=== PATIENT | male | born 1975 | race Caucasian/White ===

== ENCOUNTER 2021-06-02 21:45 | Emergency (ER) | payer MEDICAID, SELFPAY ==
--- NOTE | ~2021-06-02 | XR_ITS ---
EXAMINATION: XR chest 2V DATE: 06/02/2021 22:33 INDICATION: Cough and worsening shortness of breath TECHNIQUE: frontal and lateral views of the chest were obtained. COMPARISON: Chest radiograph dated 10/07/2017 FINDINGS: The lungs remain clear with no focal airspace opacities, pulmonary edema, pleural effusion or pneumot horax. The cardiomediastinal silhouette is normal. Moderate thoracic spondylosis with bridging osteop hytes at several levels in the lower thoracic spine consistent with diffuse idiopathic skeletal hyper ostosis (DISH). IMPRESSION: 1. No acute cardiopulmonary disease. Reviewed, dictated and finalized at location A.
[2021-06-02 21:45] VITALS: BP 154/97; PULSE 85; RESP 25; TEMP 36.6; O2SAT 96
--- NOTE | 2021-06-02 21:56 | ECG_ITS ---
Measurements Intervals [place] Rate: 82 P: 20 MD: 143 QRS: 33 QRSD: 105 T: 55 QT: 382 QTc: 448 Interpretive Statements SINUS RHYTHM MINIMAL Q WAVES- INFERIOR LEADS BORDERLINE ECG Electronically Signed On 06-03-2021 7:15:02 CDT by Cornelius Casas D.O.
[2021-06-02 22:13] LABS: Basophils Absolute Auto 0.07 K/mm3 (0.00-0.10); Basophils Percent Auto 0.7 % (0.0-1.0); Eosinophils Absolute Auto 0.42 K/mm3 (0.02-0.50); Eosinophils Percent Auto 4.1 % (1.0-6.0); Hematocrit 35.3 % (40.0-54.0); Hemoglobin 12.5 g/dL (14.0-18.0); Immature Granulocyte Absolute 0.07 K/mm3 (0.00-0.00); Immature Granulocyte Percent A 0.7 % (0.0-0.0); Lymphocytes Absolute Auto 2.31 K/mm3 (1.10-4.50); Lymphocytes Percent Auto 22.3 % (18.0-42.0); Mean Corpuscular HGB Conc 35.4 g/dL (32.0-36.0); Mean Corpuscular Hemoglobin 30.8 pg (27.0-31.0); Mean Corpuscular Volume 86.9 fL (78.0-102.0); Mean Platelet Volume 10.4 fl (8.7-11.0); Monocytes Percent Auto 8.7 % (2.0-11.0); Neutrophils Absolute Auto 6.6 K/mm3 (1.7-7.2); Neutrophils Percent Auto 63.5 % (50.0-70.0); Platelet Count Result 178 K/mm3 (150-420); Red Blood Count 4.06 M/mm3 (4.70-6.10); Red Cell Distribution Width 12.5 % (11.6-14.4); White Blood Count 10.3 K/mm3 (4.8-10.8)
--- NOTE | 2021-06-02 22:36 | PC.NURSE ---
reviewed papers from [facility]---patient did not keep appts set up & is almost out of prescriptions.
[2021-06-02 22:37] LABS: Alanine Aminotransferase 25 U/L (16-63); Albumin Level 2.9 g/dL (3.4-5.0); Alkaline Phosphatase 75 U/L (46-116); Anion Gap 11 mmol/L (8-16); Aspartate Amino Transferase 24 U/L (15-37); Bilirubin,Total 0.3 mg/dL (0.00-1.00); Blood Urea Nitrogen 8 mg/dL (7-18); Calcium 8.7 mg/dL (8.5-10.1); Carbon Dioxide 26 mmol/L (21-32); Chloride 104 mmol/L (98-108); Estimated CRCL calculation 156 ml/min; Estimated Glomerular Filt Rate > 60; Glucose 205 mg/dL (70-99); NT Pro B Type Natriuretic Pept 1502 pg/mL (0-125); Osmolality Calculated 296 mOsm/kg (285-295); Potassium 3.6 mmol/L (3.5-5.1); Sodium 141 mmol/L (136-145); Total Protein 6.6 g/dL (6.4-8.2); Troponin I 6.8 ng/L (0.00-60.4)
[2021-06-02 22:38] VITALS: BP 140/88; PULSE 85; RESP 21; O2SAT 97
--- NOTE | 2021-06-02 22:53 | ED.GENADULT ---
HPI - General Adult General Chief complaint: Upper Respiratory Infection Stated complaint: chest pain, trouble breathing Time Seen by Provider: 06/02/21 21:50 Source: patient Mode of arrival: ambulatory Limitations: no limitations History of Present Illness HPI narrative: Patient comes in with mild complaints of shortness of breath which has been ongoing and very mild, since his discharge from the hospital with histoplasmosis and CHF. No symptoms are new. He has had these symptoms for the past month he says. Medications taken at home have helped him feel better. He is worried he will run out of his medications. He is requesting refills, and states he comes in for that. He has denied chest pain fever, chills, and other symptoms. He was instructed to follow up, but has not followed up. He is requesting refills on his medications he had from [facility] including his Coreg, Lasix and other drugs. Onset (ago): day(s) Location: neck Radiation: non-radiation Severity: moderate Relieving factors: none Exacerbating factors: none Associated symptoms: denies other symptoms Related Data Home Medications Medication Instructions Recorded Confirmed aspirin [Adult Aspirin] 81 mg PO DAILY 06/02/21 06/02/21 carvedilol 12.5 mg PO BID 06/02/21 06/02/21 furosemide 40 mg PO DAILY 06/02/21 06/02/21 insulin glargine [Lantus Solostar 15 unit SUBCUT HS 06/02/21 06/02/21 U-100 Insulin] metformin 500 mg PO BID 06/02/21 06/02/21 sacubitril-valsartan 1 tablet PO BID 06/02/21 06/02/21 spironolactone 12.5 mg PO DAILY 06/02/21 06/02/21 Allergies Allergy/AdvReac Type Severity Reaction Status Date / Time amlodipine Allergy Unknown Verified 06/02/21 22:04 tramadol Allergy Unknown Verified 06/02/21 22:04 Review of Systems Constitutional: Constitutional: Reports no additional constitutional complaints Eyes: Eyes: Reports no additional eye complaints ENT: Reports system reviewed and no additional complaints, except as documented Cardiovascular: Cardiovascular: Reports no additional cardiovascular complaints Respiratory: Respiratory: Reports no additional respiratory complaints Gastrointestinal: Gastrointestinal: Reports no additional gastrointestinal complaints Genitourinary: Genitourinary: Reports no additional male genitourinary complaints Musculoskeletal: Musculoskeletal: Reports no additional musculoskeletal complaints Integumentary/Breasts: Skin/Breast: Reports system reviewed and no additional complaints, except as docu Neurologic: Reports system reviewed and no additional complaints, except as documented Psychiatric: Psychiatric: Reports no additional psychiatric complaints Endocrine: Endocrine: Reports no additional endocrine complaints Hematologic/Lymphatic: Hematologic/Lymphatic: Reports no additional hematologic/lymphatic complaints Allergic/Immunologic: Allergic/Immunologic: Reports no additional allergic/immunologic complaints [facility] Past Medical History Medical History (Updated 06/03/21 @ 00:43 by Steve Monroe MD) Congestive heart failure Diabetes mellitus Histoplasma capsulatum infection Surgical History Surgical History (Updated 06/03/21 @ 00:44 by Steve Monroe MD) H/O hernia repair Family History Family History (Updated 06/03/21 @ 00:44 by Steve Monroe MD) Father Heart disease Mother Diabetes mellitus Social History Social History (Updated 06/03/21 @ 00:46 by Steve Monroe MD) Smoking packs per day: 0.5 Smoking cigarettes per day: 10.0 Smoking status: Current every day smoker Tobacco type: cigarettes Alcohol intake: current Alcohol use details: alcohol use some days each week Substance use: never Gender identity (if verbalized by the patient): Male Sexual Orientation (if Verbalized by the Patient): Straight or Heterosexual Exam Const: General: no acute distress and alert Orientation/consciousness: patient oriented x3 HENMT: Head: normal to inspection E
[2021-06-02 23:14] VITALS: BP 138/89; PULSE 84; RESP 20; TEMP 37.1; O2SAT 96
== END 2021-06-02 23:15 | disposition home or self-care (01) ==
PROVIDERS: Emergency Provider Emergency Medicine
DX: I50.9 Heart failure, unspecified (principal); Z91.19 Patient's noncompliance with other medical treatment and regimen
CPT/HCPCS: 36415; 71046; 80053; 83880; 84484; 85025; 93005; 99283; 99284

== ENCOUNTER 2021-06-07 09:10 | Outpatient (CLI) | payer MEDICAID, SELFPAY ==
[2021-06-07 09:42] LABS: Hemoglobin A1C 9.5 % (<5.7)
[2021-06-07 10:41] LABS: Cholesterol 170 mg/dL (0-200); HDL Direct 34 mg/dL (40-60); LDL Cholesterol Calculated 85 mg/dL (<130); Triglycerides 253 mg/dL (0-150)
[2021-06-07 10:43] LABS: Thyroid Stimulating Hormone Reflex 1.15 u/IU/mL (0.36-3.74)
== END 2021-06-07 09:11 | disposition home or self-care (01) ==
LOC: CHSLAB 09:12
PROVIDERS: PCP Family Medicine; Visit Provider Family Medicine
DX: E11.9 Type 2 diabetes mellitus without complications (principal)
CPT/HCPCS: 36415; 80061; 83036; 84443

== ENCOUNTER 2022-07-06 23:09 | Inpatient (IN) | payer OTHER, SELFPAY ==
--- NOTE | ~2022-07-06 | CT_ITS ---
EXAMINATION: CT foot RT w con DATE: 07/07/2022 00:51 INDICATION: Diabetic right foot ulcer between the first and second metatarsals. TECHNIQUE: Computed tomography (CT) of the right foot and ankle was performed without intravenous con trast. Automated exposure control and iterative reconstruction technique were employed. The dose-roxy th product was 482.53 mGy-cm. COMPARISON: Right ankle and foot radiographs 03/19/2015 FINDINGS: Motion artifact is noted. The phalanges are excluded. Bone alignment is normal. No fracture . There is mild polyarticular osteoarthritis of the midfoot. There is mild ankle joint osteoarthritis . There are enthesophytes at the posterior and plantar aspects of calcaneal tuberosity. There is subc utaneous edema in the lower leg and foot. IMPRESSION: 1. No evidence of osteomyelitis. 2. Mild polyarticular osteoarthritis. Reviewed, dictated and finalized at location A.
--- NOTE | ~2022-07-06 | US_ITS ---
EXAMINATION: US arterial ankle brachial ind DATE: 07/09/2022 14:24 INDICATION: Diabetic foot ulcer. TECHNIQUE: Segmental pressures and plethysmographic and Doppler waveforms of the brachial and lower e xtremity arteries were obtained. COMPARISON: None. FINDINGS: Right and left brachial artery pressures of 149 mm Hg and 133 mm Hg, respectively, are concordant (no rmal difference <= 30 mmHg). Toe pressures were unable to be obtained due to wounds and bandaging. The right ankle-brachial index (ZOIE) is 1.13 (normal >= 0.9-1.0). Arterial Doppler waveforms are trip hasic with brisk systolic upstrokes throughout the arteries of the right lower limb. The left ZOIE is 1.17. Arterial Doppler waveforms are triphasic with brisk systolic upstrokes througho ut the arteries of the left lower limb. IMPRESSION: 1. No significant arterial occlusive disease to either lower limb with normal bilateral ABIs. Reviewed, dictated and finalized at location A. IMPRESSION: 1. No significant arterial occlusive disease to either lower limb with normal b ilateral ABIs.
--- NOTE | ~2022-07-06 | XR_ITS ---
EXAMINATION: XR chest 1V portable DATE: 07/07/2022 00:06 INDICATION: Chest pain. TECHNIQUE: A single frontal view of the chest was obtained on 2 radiographs. COMPARISON: Chest 2 views 06/02/2021 FINDINGS: There is no pneumonia, pleural effusion, or pneumothorax. The heart size is normal. IMPRESSION: 1. No acute cardiopulmonary disease. Reviewed, dictated and finalized at location A.
--- NOTE | 2022-07-06 23:18 | ED.SKABFB ---
HPI - Skin/Abscess/Foreign Bdy General Chief complaint: Extremity Injury, Lower Stated complaint: Foot Wound Time Seen by Provider: 07/06/22 23:12 Source: patient Mode of arrival: ambulatory Limitations: no limitations History of Present Illness HPI narrative: 47-year-old male, smoker with a history of hypertension, diabetes mellitus, Histoplasma, nonischemic cardiomyopathy with systolic and diastolic CHF with respiratory failure in April of 2021, obesity with BEATRIZ presents to the ER with -- right leg and right foot swelling and pain for the past 2 days -- the mother of the patient lanced the swelling between his 1st and 2nd metatarsal and poured peroxide. -- Questionable fever with chills MD complaint: abscess/boil ( on his right foot between the 1st and the 2nd metatarsals) Onset (ago): day(s) Tetanus up to date: yes Location: RLE Severity: moderate Quality: aching Pain Consistency: constant Relieving factors: none Exacerbating factors: none Associated symptoms: fever and chills Treatments prior to arrival: attempted to drain pus at home Related Data Home Medications Medication Instructions Recorded Confirmed aspirin 81 mg tablet 81 mg PO DAILY 06/02/21 07/07/22 insulin glargine 100 unit/mL (3 20 unit subcut DAILY 06/02/21 07/07/22 mL) subcutaneous pen (Lantus Solostar U-100 Insulin) metformin 500 mg tablet 1,000 mg PO BID 06/02/21 07/07/22 omeprazole 20 mg capsule,delayed 20 mg PO BID 06/07/21 07/07/22 release rosuvastatin 20 mg tablet (Crestor) 20 mg PO DAILY 07/07/22 07/07/22 Allergies Allergy/AdvReac Type Severity Reaction Status Date / Time amlodipine Allergy Unknown Verified 07/06/22 23:21 tramadol Allergy Unknown Verified 07/06/22 23:21 Review of Systems Review of Systems: All systems reviewed & are unremarkable except as noted in HPI and below Constitutional: Constitutional: Reports as per HPI and Reports no additional constitutional complaints Eyes: Eyes: Reports as per HPI and Reports no additional eye complaints ENT: Reports system reviewed and no additional complaints, except as documented and Reports as per HPI Cardiovascular: Cardiovascular: Reports as per HPI and Reports no additional cardiovascular complaints Respiratory: Respiratory: Reports as per HPI and Reports no additional respiratory complaints Gastrointestinal: Gastrointestinal: Reports as per HPI and Reports no additional gastrointestinal complaints Genitourinary: Genitourinary: Reports no additional male genitourinary complaints and Reports as per HPI Musculoskeletal: Musculoskeletal: Reports no additional musculoskeletal complaints and Reports as per HPI Integumentary/Breasts: Skin/Breast: Reports system reviewed and no additional complaints, except as docu Comments: right foot swelling with open central part Neurologic: Reports system reviewed and no additional complaints, except as documented and Reports as per HPI Psychiatric: Psychiatric: Reports no additional psychiatric complaints and Reports as per HPI Endocrine: Endocrine: Reports no additional endocrine complaints and Reports as per HPI Hematologic/Lymphatic: Hematologic/Lymphatic: Reports no additional hematologic/lymphatic complaints and Reports as per HPI Allergic/Immunologic: Allergic/Immunologic: Reports no additional allergic/immunologic complaints and Reports as per HPI PMF Past Medical History Medical History Congestive heart failure Diabetes mellitus Histoplasma capsulatum infection Hypertension Nicotine addiction Obesity, Class III, BMI 40-49.9 (morbid obesity) Surgical History Surgical History H/O hernia repair Family History Family History Father Heart disease Mother Diabetes mellitus Social History Social History (Reviewed 07/06/22 @ 23:39 by Abad Loomis
--- NOTE | 2022-07-06 23:26 | ECG_ITS ---
Measurements Intervals [place] Rate: 111 P: 35 AK: 145 QRS: 55 QRSD: 107 T: 48 QT: 350 QTc: 477 Interpretive Statements SINUS TACHYCARDIA ABNORMAL RHYTHM ECG COMPARED TO ECG 06/02/2021 22:01:03 SINUS TACHYCARDIA NOW PRESENT Electronically Signed On 07-07-2022 13:44:28 CDT by Claudia Christian M.D.
[2022-07-06 23:55] VITALS: BP 140/87; PULSE 117; RESP 20; TEMP 36.5; O2SAT 97
[2022-07-06 23:58] LABS: Basophils Absolute Auto 0.09 K/mm3 (0.00-0.10); Basophils Percent Auto 0.9 % (0.0-1.0); Eosinophils Absolute Auto 0.58 K/mm3 (0.02-0.50); Eosinophils Percent Auto 5.7 % (1.0-6.0); Hemoglobin 12.7 g/dL (14.0-18.0); Immature Granulocyte Absolute 0.07 K/mm3 (0.00-0.00); Immature Granulocyte Percent A 0.7 % (0.0-0.0); Lymphocytes Absolute Auto 2.91 K/mm3 (1.10-4.50); Lymphocytes Percent Auto 28.7 % (18.0-42.0); Mean Corpuscular HGB Conc 34.3 g/dL (32.0-36.0); Mean Corpuscular Hemoglobin 31.2 pg (27.0-31.0); Mean Corpuscular Volume 90.9 fL (78.0-102.0); Mean Platelet Volume 9.4 fl (8.7-11.0); Monocytes Absolute Auto 0.96 K/mm3 (0.10-0.90); Monocytes Percent Auto 9.5 % (2.0-11.0); Neutrophils Absolute Auto 5.5 K/mm3 (1.7-7.2); Neutrophils Percent Auto 54.5 % (50.0-70.0); Platelet Count Result 229 K/mm3 (150-420); Red Blood Count 4.07 M/mm3 (4.70-6.10); Red Cell Distribution Width 13.1 % (11.6-14.4); White Blood Count 10.1 K/mm3 (4.8-10.8)
[2022-07-07] VITALS (16 sets, daily range): BP systolic 123–164; BP diastolic 82–101; PULSE 80–106; RESP 14–22; TEMP 36.2–37.1; O2SAT 96–100; BMI 45.5
[2022-07-07 00:02] LABS: Add Urine Microscopic? YES; Appearance Urine Clear (Clear); Bilirubin Urine Negative (Negative); Blood Urine Negative (Negative); Color Urine Light Yellow (Yellow); Glucose Urine UA 3+ (Negative); Ketones Urine Negative (Negative); Leukocyte Esterase Ur Negative (Negative); Nitrate Urine Negative (Negative); Protein Urine Negative (Negative); Specific Grav Ur <= 1.005 (1.010-1.020); Urobilinogen Urine 0.2 mg/dL (0.2-1.0)
[2022-07-07 00:08] LABS: Bacteria Urine None seen /hpf; RBC Urine 0-2 /hpf (0-2); Squamous Epithelial Cell Urine None seen /hpf (Few); WBC Urine 0-3 /hpf (0-3)
[2022-07-07 00:14] LABS: D Dimer 0.46 mg/L (0.19-0.50); Partial Thromboplastin Time 25.6 SEC (23.90-30.70); Prothrombin Time 10.7 Seconds (9.50-12.10)
[2022-07-07 00:19] LABS: Lactic Acid Reflex 1.7 mmol/L (0.4-2.0)
[2022-07-07 00:26] LABS: Alanine Aminotransferase 23 U/L (16-63); Alkaline Phosphatase 84 U/L (46-116); Anion Gap 10 mmol/L (8-16); Aspartate Amino Transferase 17 U/L (15-37); Bilirubin,Total 0.2 mg/dL (0.00-1.00); Blood Urea Nitrogen 11 mg/dL (7-18); Calcium 8.3 mg/dL (8.5-10.1); Carbon Dioxide 22 mmol/L (21-32); Chloride 99 mmol/L (98-108); Estimated CRCL calculation 126 ml/min; Estimated Glomerular Filt Rate > 60; Lipase 73 U/L (73-393); Magnesium 1.8 mg/dL (1.8-2.4); NT Pro B Type Natriuretic Pept 52 pg/mL (0-125); Osmolality Calculated 290 mOsm/kg (285-295); Potassium 3.6 mmol/L (3.5-5.1); Sodium 131 mmol/L (136-145); Thyroid Stimulating Hormone 1.42 uIU/mL (0.36-3.74); Total Protein 6.6 g/dL (6.4-8.2); Troponin I 6.9 ng/L (0.00-60.4)
[2022-07-07 00:28] LABS: Glucose 445 mg/dL (70-99)
[2022-07-07 00:29] LABS: CRP 2.3 mg/dL (0.0-0.9)
[2022-07-07] MEDS: INSULIN HUMAN REGULAR (*BKC) 100 UNITS/ML 10 UNITS IV PUSH (00:51)
[2022-07-07] MEDS: SULFAMETHOXAZOLE/TRIMETHOPRIM 800/160 MG DS TABLET 1 TAB PO (00:51)
[2022-07-07] MEDS: AMPICILLIN SULB 3 GM/NS 100 ML 3 GM/100 ML VIAL IVPB ×5 (00:51→23:15)
[2022-07-07] MEDS: HYDROcodone/acetaminophen (*CRX) 5-325 MG TABLET 1 TAB PO ×4 (01:04→21:04)
[2022-07-07 01:34] LABS: Glucose Point of Care 298 mg/dl (65-105)
--- NOTE | 2022-07-07 01:39 | PC.NURSE ---
pt to be admitted as an inpatient into room 209
--- NOTE | 2022-07-07 01:53 | PC.NURSE ---
spoke with ZAIN Orantes concerning patient admission. informed ZAIN Orantes that pt's blood glucose with be checked prior to being brought up to room 209 per MD Choi.
[2022-07-07] MEDS: INSULIN HUMAN REGULAR (*BKC) 100 UNITS/ML SUB-Q (02:06)
--- NOTE | 2022-07-07 02:08 | PC.NURSE ---
pt given Regular 5unit subq for POC 203 - see MAR. Updated ZAIN Orantes.
--- NOTE | 2022-07-07 02:15 | ADMGEN ---
This patient, Clovis Steel, was admitted to 2nd Floor Room 209-1. Patient/family oriented to hospital policies and general routines including ID bracelet, bed and alarms, visiting hours, pain management, procedures, bathroom and other care routines, personal items, smoking policy, room service/diet, and visiting hours. Information on how to activate the Rapid Response Team has been discussed. Patient/Family are encouraged to report perceived risks to care and to ask questions if they do not understand what they are told or what they should do.
[2022-07-07 05:31] LABS: Hematocrit 36.6 % (40.0-54.0); Hemoglobin 12.4 g/dL (14.0-18.0); Mean Corpuscular HGB Conc 33.9 g/dL (32.0-36.0); Mean Corpuscular Hemoglobin 30.7 pg (27.0-31.0); Mean Corpuscular Volume 90.6 fL (78.0-102.0); Mean Platelet Volume 8.9 fl (8.7-11.0); Platelet Count Result 210 K/mm3 (150-420); Red Blood Count 4.04 M/mm3 (4.70-6.10); Red Cell Distribution Width 12.7 % (11.6-14.4); White Blood Count 9.1 K/mm3 (4.8-10.8)
[2022-07-07 05:49] LABS: Alanine Aminotransferase 23 U/L (16-63); Albumin Level 2.7 g/dL (3.4-5.0); Alkaline Phosphatase 79 U/L (46-116); Anion Gap 8 mmol/L (8-16); Aspartate Amino Transferase 17 U/L (15-37); Bilirubin,Total 0.2 mg/dL (0.00-1.00); Blood Urea Nitrogen 9 mg/dL (7-18); Carbon Dioxide 24 mmol/L (21-32); Chloride 103 mmol/L (98-108); Estimated CRCL calculation 171 ml/min; Estimated Glomerular Filt Rate > 60; Glucose 214 mg/dL (70-99); Osmolality Calculated 284 mOsm/kg (285-295); Potassium 3.2 mmol/L (3.5-5.1); Sodium 135 mmol/L (136-145); Total Protein 6.2 g/dL (6.4-8.2)
--- NOTE | 2022-07-07 07:06 | PM.IMHP ---
H&P: HPI History of Present Illness Date/Time: 07/07/22 07:06 Chief Complaint: Right lower extremity swelling and redness with foot warm Narrative: This is a 47-year-old male who presented to our emergency department with complaints of right leg and foot swelling and pain that occur a couple of days ago. Patient has a past medical history of congestive heart failure, diabetes, hypertension, and nicotine addiction. Patient notes that he developed a sore on the bottom of his feet a couple of days ago he is unsure of how he developed a sore. He notes that he experienced pain to the right foot in noticed a pustule ball between his great toe and second toe. Patient noted that at that time he asked his mother to cut open the bump. Patient notes that when she lacerated abscess by fluid discharge from the site. Patient notes that at that time he put hydrogen peroxide on the site. Later he started to develop redness and increased pain that started to migrate up his leg. At that time he decided to come to our emergency department. Patient is being admitted for cellulitis and hyperglycemia. Vital signs 129/85, 93, 18, 97.5, 95% on room air, WBCs 10.1, hemoglobin 12.7, hematocrit 37.0, platelets 229, D-dimer 0.46, sodium 131, potassium 3.6, BUN 11, creatinine 1.05, glucose 445, lactic acid 1.7, magnesium 1.8, total bilirubin 0.2, AST 17, ALT 23, troponin 6.9, BUN 52, CRP 2.3, TSH 1.42 UA positive for glucose EKG indicates sinus tach with a heart rate of 111 patient has been admitted for cellulitis and hyperglycemia. Patient is still experiencing pain to the right lower extremity. The patient denies SOB, CP, palpitation, extremity numbness, lightheadedness, dizziness, constipation, diarrhea, chills, or fever. Review of Systems Review of Systems: A 14 organ system Review of Systems was performed and pertinent positives included in the HPI, otherwise remaining ROS is negative. [facility] Past Medical History Medical History Congestive heart failure Diabetes mellitus Histoplasma capsulatum infection Hypertension Nicotine addiction Obesity, Class III, BMI 40-49.9 (morbid obesity) Surgical History Surgical History H/O hernia repair Family History Family History Father Heart disease Mother Diabetes mellitus Social History Social History Smoking packs per day: 0.5 Smoking cigarettes per day: 10.0 Smoking status: Former smoker Alcohol intake: current Drinks per week: 2 Alcohol use details: alcohol use some days each week Substance use: never Gender identity (if verbalized by the patient): Male Sexual Orientation (if Verbalized by the Patient): Straight or Heterosexual Spiritual care concerns: No Meds Home Medications and Allergies Home Medications Medication Instructions Recorded Confirmed Type aspirin 81 mg tablet 81 mg PO DAILY 06/02/21 07/07/22 History furosemide 40 mg tablet (Lasix) 40 mg PO DAILY #30 tabs 06/02/21 07/07/22 Rx insulin glargine 100 unit/mL (3 20 unit subcut DAILY 06/02/21 07/07/22 History mL) subcutaneous pen (Lantus Solostar U-100 Insulin) metformin 500 mg tablet 1,000 mg PO BID 06/02/21 07/07/22 History spironolactone 25 mg tablet 12.5 mg PO DAILY #30 tabs 06/02/21 07/07/22 Rx (Aldactone) omeprazole 20 mg capsule,delayed 20 mg PO BID 06/07/21 07/07/22 History release carvedilol 25 mg tablet See Rx Instructions .Route 10/14/21 07/07/22 Rx .COMPLEX #180 tabs rosuvastatin 20 mg tablet (Crestor) 20 mg PO DAILY 07/07/22 07/07/22 History Allergies Allergy/AdvReac Type Severity Reaction Status Date / Time amlodipine Allergy Unknown Verified 07/06/22 23:21 tramadol Allergy Unknown Verified 07/06/22 23:21 Vital Signs Vital Signs - 24 hr 07/06/22 2
[2022-07-07 07:36] LABS: Glucose Point of Care 201 mg/dl (65-105)
[2022-07-07] MEDS: ASPIRIN 81 MG CHEWABLE TABLET PO (08:01)
[2022-07-07] MEDS: carvediloL 12.5 MG TABLET 25 MG PO ×2 (08:01→21:03)
[2022-07-07] MEDS: ROSUVASTATIN 10 MG TABLET 20 MG PO (08:02)
[2022-07-07] MEDS: PANTOPRAZOLE 40 MG TABLET PO ×2 (08:02→16:42)
[2022-07-07] MEDS: FUROSEMIDE 40 MG TABLET PO (08:02)
[2022-07-07] MEDS: ENOXAPARIN 40 MG/0.4 ML SYRINGE SUB-Q (08:05)
[2022-07-07] MEDS: INSULIN GLARGINE (*BKC) 100 UNITS/ML 20 UNITS SUB-Q (08:07)
[2022-07-07] MEDS: SPIRONOLACTONE 12.5 MG TABLET PO (08:10)
[2022-07-07] MEDS: VANCOMYCIN HCL 2,000 MG in SODIUM CHLORIDE 0.9% IV 500 ML 250 MG IVPB (13:47)
[2022-07-07 16:44] LABS: Glucose Point of Care 203 mg/dl (65-105)
[2022-07-07 16:52] LABS: Glucose Point of Care 225 mg/dl (65-105)
[2022-07-07] MEDS: traZODone HCL 50 MG TABLET PO (21:04)
[2022-07-07 21:08] LABS: Glucose Point of Care 220 mg/dl (65-105)
[2022-07-08] VITALS (9 sets, daily range): BP systolic 132–147; BP diastolic 77–91; PULSE 78–99; RESP 14–18; TEMP 35.9–36.7; O2SAT 98–100
[2022-07-08] MEDS: VANCOMYCIN HCL 2,000 MG in SODIUM CHLORIDE 0.9% IV 500 ML 250 MG IVPB ×3 (01:26→22:05)
[2022-07-08] MEDS: HYDROcodone/acetaminophen (*CRX) 5-325 MG TABLET 1 TAB PO ×5 (01:28→21:24)
[2022-07-08] MEDS: AMPICILLIN SULB 3 GM/NS 100 ML 3 GM/100 ML VIAL IVPB ×3 (05:06→18:04)
[2022-07-08 06:57] LABS: Hematocrit 36.7 % (40.0-54.0); Hemoglobin 12.8 g/dL (14.0-18.0); Mean Corpuscular HGB Conc 34.9 g/dL (32.0-36.0); Mean Corpuscular Hemoglobin 31.5 pg (27.0-31.0); Mean Corpuscular Volume 90.4 fL (78.0-102.0); Mean Platelet Volume 9.2 fl (8.7-11.0); Platelet Count Result 205 K/mm3 (150-420); Red Blood Count 4.06 M/mm3 (4.70-6.10); Red Cell Distribution Width 12.7 % (11.6-14.4); White Blood Count 11.4 K/mm3 (4.8-10.8)
[2022-07-08 07:15] LABS: Alanine Aminotransferase 20 U/L (16-63); Albumin Level 2.5 g/dL (3.4-5.0); Alkaline Phosphatase 76 U/L (46-116); Anion Gap 6 mmol/L (8-16); Aspartate Amino Transferase 13 U/L (15-37); Bilirubin,Total 0.4 mg/dL (0.00-1.00); Blood Urea Nitrogen 9 mg/dL (7-18); Calcium 8.1 mg/dL (8.5-10.1); Carbon Dioxide 25 mmol/L (21-32); Chloride 104 mmol/L (98-108); Estimated CRCL calculation 192 ml/min; Estimated Glomerular Filt Rate > 60; Glucose 195 mg/dL (70-99); Osmolality Calculated 283 mOsm/kg (285-295); Potassium 3.8 mmol/L (3.5-5.1); Sodium 135 mmol/L (136-145)
[2022-07-08 07:37] LABS: Glucose Point of Care 213 mg/dl (65-105)
[2022-07-08] MEDS: ASPIRIN 81 MG CHEWABLE TABLET PO (08:04)
[2022-07-08] MEDS: carvediloL 12.5 MG TABLET 25 MG PO ×2 (08:04→20:53)
[2022-07-08] MEDS: FUROSEMIDE 40 MG TABLET PO (08:05)
[2022-07-08] MEDS: SACCHAROMYCES BOULARDII 250 MG CAPSULE PO ×3 (08:07→16:31)
[2022-07-08] MEDS: ROSUVASTATIN 10 MG TABLET 20 MG PO (08:07)
[2022-07-08] MEDS: PANTOPRAZOLE 40 MG TABLET PO ×2 (08:07→16:31)
[2022-07-08] MEDS: SACUBITRIL/VALSARTAN 49-51 MG TABLET 1 TABLET PO ×2 (08:08→20:53)
[2022-07-08] MEDS: SPIRONOLACTONE 12.5 MG TABLET PO (08:08)
[2022-07-08] MEDS: INSULIN GLARGINE (*BKC) 100 UNITS/ML 20 UNITS SUB-Q (08:17)
--- NOTE | 2022-07-08 08:17 | P.PN_ITS ---
Progress Note: A&P Assessment and Plan (1) Hyperglycemia due to type 2 diabetes mellitus: Code(s): E11.65 - Type 2 diabetes mellitus with hyperglycemia Status: Acute Assessment and Plan: * glucose 445>214 * a1c 05/2022 9.5 * Continue Accu-Cheks with sliding scale hypoglycemic protocol * Continue diabetic diet (2) Congestive heart failure: Code(s): I50.9 - Heart failure, unspecified Status: Acute Assessment and Plan: * compensated * BNP 52 * Continue lasix 40 mg daily * weight daily * CXR no acute findings (3) Cellulitis of foot: Code(s): L03.119 - Cellulitis of unspecified part of limb Status: Acute Assessment and Plan: * continue ampicillin and vanc day 2 * secondary to foot ulcer * wbc , lactic acid within normal limits * crp elevated 2.3 * BC pending * CT of foot no myelitis noted * continue wound care (4) Tobacco abuse: Code(s): Z72.0 - Tobacco use Status: Acute Assessment and Plan: * Order nicotine patch (5) Obesity, Class III, BMI 40-49.9 (morbid obesity): Code(s): E66.01 - Morbid (severe) obesity due to excess calories Status: Acute Assessment and Plan: * Educated on a healthy lifestyle (6) Diabetes mellitus: Code(s): E11.9 - Type 2 diabetes mellitus without complications Status: Acute Assessment and Plan: * glucose 445>214>195 * a1c 05/2022 9.5 * Continue Accu-Cheks with sliding scale hypoglycemic protocol * Continue diabetic diet (7) Hypertension: Code(s): I10 - Essential (primary) hypertension Status: Acute Assessment and Plan: * Stable * Continue carvedilol and spironolactone * Vital signs as ordered * Adjust medication as needed Subjective Date/time seen: 07/08/22 08:17 Interval history: Patient has no complaints at this time he notes that his arm pain is being well controlled. The site of with cellulitis has decreased in edema, edema and warmth. Patient will possibly benefit from 1 more day worth of antibiotic treatment. The patient denies SOB, CP, palpitation, extremity numbness, lightheadedness, dizziness, constipation, diarrhea, chills, or fever. Review of Systems Review of Systems: A 14 organ system Review of Systems was performed and pertinent positives included in the HPI, otherwise remaining ROS is negative. Objective Data Vital Signs Vital Signs: Vital Signs - 24 hr 07/07/22 12:00 07/07/22 12:00 07/07/22 16:00 Temperature 97.6 F Pulse Rate 87 87 83 Respiratory Rate 16 Blood Pressure 133/87 Pulse Oximetry 100 Oxygen Delivery Room Air 07/07/22 16:00 07/07/22 19:30 07/07/22 19:30 Temperature 97.6 F Pulse Rate 83 80 80 Respiratory Rate 14 18 Blood Pressure 133/82 Pulse Oximetry 100 98 Oxygen Delivery Room Air Room Air 07/07/22 19:30 07/07/22 21:03 07/07/22 23:54 Temperature 97.1 F L Pulse Rate 80 86 87 Respiratory Rate 18 Blood Pressure 144/92 H Pulse Oximetry 98 Oxygen Delivery Room Air 07/07/22 23:54 07/08/22 04:00 07/08/22 04:00 Temperature 98.8 F 97.8 F Pulse Rate 87 99 87 Respiratory Rate 18 18 Blood Pressure 143/88 H 132/80 Pulse Oxi
--- NOTE | 2022-07-08 08:17 | WPDPN ---
Progress Note: A&P Assessment and Plan (1) Hyperglycemia due to type 2 diabetes mellitus: Code(s): E11.65 - Type 2 diabetes mellitus with hyperglycemia Status: Acute Assessment and Plan: glucose 445>214 a1c 05/2022 9.5 Continue Accu-Cheks with sliding scale hypoglycemic protocol Continue diabetic diet (2) Congestive heart failure: Code(s): I50.9 - Heart failure, unspecified Status: Acute Assessment and Plan: compensated BNP 52 Continue lasix 40 mg daily weight daily CXR no acute findings (3) Cellulitis of foot: Code(s): L03.119 - Cellulitis of unspecified part of limb Status: Acute Assessment and Plan: continue ampicillin and vanc day 2 secondary to foot ulcer wbc , lactic acid within normal limits crp elevated 2.[address] of foot no myelitis noted continue wound care (4) Tobacco abuse: Code(s): Z72.0 - Tobacco use Status: Acute Assessment and Plan: Order nicotine patch (5) Obesity, Class III, BMI 40-49.9 (morbid obesity): Code(s): E66.01 - Morbid (severe) obesity due to excess calories Status: Acute Assessment and Plan: Educated on a healthy lifestyle (6) Diabetes mellitus: Code(s): E11.9 - Type 2 diabetes mellitus without complications Status: Acute Assessment and Plan: glucose 445>214>195 a1c 05/2022 9.5 Continue Accu-Cheks with sliding scale hypoglycemic protocol Continue diabetic diet (7) Hypertension: Code(s): I10 - Essential (primary) hypertension Status: Acute Assessment and Plan: Stable Continue carvedilol and spironolactone Vital signs as ordered Adjust medication as needed Subjective Date/time seen: 07/08/22 08:17 Interval history: Patient has no complaints at this time he notes that his arm pain is being well controlled. The site of with cellulitis has decreased in edema, edema and warmth. Patient will possibly benefit from 1 more day worth of antibiotic treatment. The patient denies SOB, CP, palpitation, extremity numbness, lightheadedness, dizziness, constipation, diarrhea, chills, or fever. Review of Systems Review of Systems: A 14 organ system Review of Systems was performed and pertinent positives included in the HPI, otherwise remaining ROS is negative. Objective Data Vital Signs Vital Signs: Vital Signs - 24 hr 07/07/22 12:00 07/07/22 12:00 07/07/22 16:00 Temperature 97.6 F Pulse Rate 87 87 83 Respiratory Rate 16 Blood Pressure 133/87 Pulse Oximetry 100 Oxygen Delivery Room Air 07/07/22 16:00 07/07/22 19:30 07/07/22 19:30 Temperature 97.6 F Pulse Rate 83 80 80 Respiratory Rate 14 18 Blood Pressure 133/82 Pulse Oximetry 100 98 Oxygen Delivery Room Air Room Air 07/07/22 19:30 07/07/22 21:03 07/07/22 23:54 Temperature 97.1 F L Pulse Rate 80 86 87 Respiratory Rate 18 Blood Pressure 144/92 H Pulse Oximetry 98 Oxygen Delivery Room Air 07/07/22 23:54 07/08/22 04:00 07/08/22 04:00 Temperature 98.8 F 97.8 F Pulse Rate 87 99 87 Respiratory Rate 18 18 Blood Pressure 143/88 H 132/80 Pulse Oximetry 96 98 Oxygen Delivery Room Air Room Air 07/08/22 08:04 Temperature Pulse Rate 81 Respiratory Rate Blood Pressure Pulse Oximetry Oxygen Delivery Intake/Output Intake/Output: Intake & Output 07/05/22 07/06/22 07/07/22 07/08/22 23:59 23:59 23:59 23:59 Intake Total 3140 2100 Output Total 400 0973 2600 Balance -678 -447 -439 Meds/Results Medications: Active Medications Generic Name Dose Route Start Last Admin Trade Name Freq PRN Reason Stop Dose Admin Acetaminophen 650 mg 07/07/22 01:33 Acetaminophen 325 Mg Tablet PO Q4H PRN Mild Pain (1-3) or Fever Hydrocodone Bitart/Acetaminophen 1 tab 07/07/22 01:33 07/08/22 05:06 Hydrocodone/Acetaminophen (*Crx) 5-325 Mg Tablet PO 1 tab Q4H PRN Administration Mode
[2022-07-08] MEDS: ENOXAPARIN 40 MG/0.4 ML SYRINGE SUB-Q (08:18)
[2022-07-08 11:50] LABS: Glucose Point of Care 210 mg/dl (65-105)
[2022-07-08 13:33] LABS: Vancomycin Trough 6.7 ug/mL (10.0-15.0)
[2022-07-08 16:41] LABS: Glucose Point of Care 238 mg/dl (65-105)
[2022-07-08] MEDS: traZODone HCL 50 MG TABLET PO (20:58)
[2022-07-08 20:59] LABS: Glucose Point of Care 212 mg/dl (65-105)
[2022-07-09] VITALS (8 sets, daily range): BP systolic 143; BP diastolic 94; PULSE 84–102; RESP 16; TEMP 36.4–36.8; O2SAT 100
[2022-07-09] MEDS: AMPICILLIN SULB 3 GM/NS 100 ML 3 GM/100 ML VIAL IVPB ×2 (00:08→05:28)
--- NOTE | 2022-07-09 02:11 | PC.NURSE ---
Patient's telemetry showed frequent PVC's throughout the evening. Patient was sleeping. He began to show periods of rapid heart rate, and when checked on was sleeping on his side. Patient was repositioned, and batteries were changed in the telemetry box. Telemetry was showing more frequent PVC's and periods of nonsustained V-Tach. Patient's telemetry leads were checked; one was off, and the other was not well attached. Once that was changed, patient's telemetry settled down to sinus rhythm within the 90's. He continued to show some PVC's, but the telemetry was more in line with patient's baseline.
[2022-07-09 05:25] LABS: Hematocrit 39.5 % (40.0-54.0); Hemoglobin 13.6 g/dL (14.0-18.0); Mean Corpuscular HGB Conc 34.4 g/dL (32.0-36.0); Mean Corpuscular Hemoglobin 30.8 pg (27.0-31.0); Mean Corpuscular Volume 89.6 fL (78.0-102.0); Mean Platelet Volume 9.2 fl (8.7-11.0); Platelet Count Result 222 K/mm3 (150-420); Red Blood Count 4.41 M/mm3 (4.70-6.10); White Blood Count 7.8 K/mm3 (4.8-10.8)
[2022-07-09] MEDS: HYDROcodone/acetaminophen (*CRX) 5-325 MG TABLET 1 TAB PO ×4 (05:35→21:29)
[2022-07-09 05:42] LABS: Alanine Aminotransferase 20 U/L (16-63); Albumin Level 2.7 g/dL (3.4-5.0); Alkaline Phosphatase 78 U/L (46-116); Anion Gap 6 mmol/L (8-16); Aspartate Amino Transferase 14 U/L (15-37); Bilirubin,Total 0.3 mg/dL (0.00-1.00); Blood Urea Nitrogen 10 mg/dL (7-18); Calcium 8.7 mg/dL (8.5-10.1); Carbon Dioxide 26 mmol/L (21-32); Chloride 104 mmol/L (98-108); Estimated CRCL calculation 201 ml/min; Estimated Glomerular Filt Rate > 60; Glucose 203 mg/dL (70-99); Osmolality Calculated 287 mOsm/kg (285-295); Potassium 3.7 mmol/L (3.5-5.1); Sodium 136 mmol/L (136-145); Total Protein 6.6 g/dL (6.4-8.2)
[2022-07-09] MEDS: VANCOMYCIN HCL 2,000 MG in SODIUM CHLORIDE 0.9% IV 500 ML 250 MG IVPB (06:08)
--- NOTE | 2022-07-09 06:18 | PC.NURSE ---
Jasmin is unable to chart on patient's progress toward goals. Therefore the charge nurse charts the progress with input from Jasmin.
[2022-07-09 07:23] LABS: Glucose Point of Care 197 mg/dl (65-105)
[2022-07-09] MEDS: SPIRONOLACTONE 12.5 MG TABLET PO (08:27)
[2022-07-09] MEDS: ASPIRIN 81 MG CHEWABLE TABLET PO (08:28)
[2022-07-09] MEDS: SACCHAROMYCES BOULARDII 250 MG CAPSULE PO ×3 (08:28→16:55)
[2022-07-09] MEDS: PANTOPRAZOLE 40 MG TABLET PO ×2 (08:28→16:55)
[2022-07-09] MEDS: carvediloL 12.5 MG TABLET 25 MG PO ×2 (08:28→20:15)
[2022-07-09] MEDS: SACUBITRIL/VALSARTAN 49-51 MG TABLET 1 TABLET PO ×2 (08:28→20:17)
[2022-07-09] MEDS: ROSUVASTATIN 10 MG TABLET 20 MG PO (08:29)
[2022-07-09] MEDS: ENOXAPARIN 40 MG/0.4 ML SYRINGE SUB-Q (08:29)
[2022-07-09] MEDS: FUROSEMIDE 40 MG TABLET PO (08:29)
[2022-07-09] MEDS: INSULIN GLARGINE (*BKC) 100 UNITS/ML 20 UNITS SUB-Q (08:32)
[2022-07-09 08:47] LABS: Glucose Point of Care 203 mg/dl (65-105)
[2022-07-09 11:38] LABS: Glucose Point of Care 265 mg/dl (65-105)
--- NOTE | 2022-07-09 12:01 | P.PN_ITS ---
Progress Note: A&P Assessment and Plan (1) Hyperglycemia due to type 2 diabetes mellitus: Code(s): E11.65 - Type 2 diabetes mellitus with hyperglycemia Status: Acute Assessment and Plan: * glucose 445>214 * a1c 05/2022 9.5 * Continue Accu-Cheks with sliding scale hypoglycemic protocol * Continue diabetic diet (2) Congestive heart failure: Code(s): I50.9 - Heart failure, unspecified Status: Acute Assessment and Plan: * compensated * BNP 52 * Continue lasix 40 mg daily * weight daily * CXR no acute findings (3) Cellulitis of foot: Code(s): L03.119 - Cellulitis of unspecified part of limb Status: Acute Assessment and Plan: * continue ampicillin and vanc day 2 discontinued * started doxycycline, Augmentin today * secondary to foot ulcer * wbc , lactic acid within normal limits * crp elevated 2.3 * BC pending * CT of foot no osteomyelitis noted * continue wound care * consulted wound care and they will follow up with patient on a weekly basis and recommendation are in the chart. pt will stay one more day to see how he responds to oral antibiotics * ABIS ordered for the right leg. (4) Tobacco abuse: Code(s): Z72.0 - Tobacco use Status: Acute Assessment and Plan: * Order nicotine patch (5) Obesity, Class III, BMI 40-49.9 (morbid obesity): Code(s): E66.01 - Morbid (severe) obesity due to excess calories Status: Acute Assessment and Plan: * Educated on a healthy lifestyle (6) Diabetes mellitus: Code(s): E11.9 - Type 2 diabetes mellitus without complications Status: Acute Assessment and Plan: * glucose 445>214>195 * a1c 05/2022 9.5 * Continue Accu-Cheks with sliding scale hypoglycemic protocol * Continue diabetic diet (7) Hypertension: Code(s): I10 - Essential (primary) hypertension Status: Acute Assessment and Plan: * Stable * Continue carvedilol and spironolactone * Vital signs as ordered * Adjust medication as needed Subjective Date/time seen: 07/09/22 12:01 Interval history: Mr. Keyes is feeling a lot better today. Patient foot has less swelling and decreased erythema and drainage. Consult placed to wound clinic to see if he wo uld be a candidate that they could follow up with. Patient has been switched from IV to oral antibiotics. His blood sugars has ranged from 195-265 according to patient he does not check his blood sugar regularly and his average is around 270. I had a discussion with patient about his blood sugars and the importance of blood sugars being in normal range he acknowledge understanding what I meant especially for healing but he states he more than likely would not check regular blood sugars but he does take his medication as prescribed. I discussed that he would have a better healing process when blood sugars are normalized . Patient is eating and drinking without difficulties he has ambulated and up in the chair with his foot elevated. Exam Narrative: GENERAL: obsese,This is a well-nourished, well-developed patient, in no apparent distress. HEAD: normocephalic, atraumatic. EYES: PERRL. Sclera clear/white. Vision is grossly intact. EARS: External ears normal, auditory canals clear and without drainage, TMs normal without perforation. Hearing grossly intact. NOSE: External nose normal with no obvious nasal discharge, nares without redness, no rhinorrhea. THROAT: Mucous membranes moist, posterior pharynx clear. NECK: Neck supple, non-tender without lymphadenopathy, masses or thyrom
--- NOTE | 2022-07-09 12:01 | WPDPN ---
Progress Note: A&P Assessment and Plan (1) Hyperglycemia due to type 2 diabetes mellitus: Code(s): E11.65 - Type 2 diabetes mellitus with hyperglycemia Status: Acute Assessment and Plan: glucose 445>214 a1c 05/2022 9.5 Continue Accu-Cheks with sliding scale hypoglycemic protocol Continue diabetic diet (2) Congestive heart failure: Code(s): I50.9 - Heart failure, unspecified Status: Acute Assessment and Plan: compensated BNP 52 Continue lasix 40 mg daily weight daily CXR no acute findings (3) Cellulitis of foot: Code(s): L03.119 - Cellulitis of unspecified part of limb Status: Acute Assessment and Plan: continue ampicillin and vanc day 2 discontinued started doxycycline, Augmentin today secondary to foot ulcer wbc , lactic acid within normal limits crp elevated 2.[address] of foot no osteomyelitis noted continue wound care consulted wound care and they will follow up with patient on a weekly basis and recommendation are in the chart. pt will stay one more day to see how he responds to oral antibiotics ABIS ordered for the right leg. (4) Tobacco abuse: Code(s): Z72.0 - Tobacco use Status: Acute Assessment and Plan: Order nicotine patch (5) Obesity, Class III, BMI 40-49.9 (morbid obesity): Code(s): E66.01 - Morbid (severe) obesity due to excess calories Status: Acute Assessment and Plan: Educated on a healthy lifestyle (6) Diabetes mellitus: Code(s): E11.9 - Type 2 diabetes mellitus without complications Status: Acute Assessment and Plan: glucose 445>214>195 a1c 05/2022 9.5 Continue Accu-Cheks with sliding scale hypoglycemic protocol Continue diabetic diet (7) Hypertension: Code(s): I10 - Essential (primary) hypertension Status: Acute Assessment and Plan: Stable Continue carvedilol and spironolactone Vital signs as ordered Adjust medication as needed Subjective Date/time seen: 07/09/22 12:01 Interval history: Mr. Keyes is feeling a lot better today. Patient foot has less swelling and decreased erythema and drainage. Consult placed to wound clinic to see if he would be a candidate that they could follow up with. Patient has been switched from IV to oral antibiotics. His blood sugars has ranged from 195-265 according to patient he does not check his blood sugar regularly and his average is around 270. I had a discussion with patient about his blood sugars and the importance of blood sugars being in normal range he acknowledge understanding what I meant especially for healing but he states he more than likely would not check regular blood sugars but he does take his medication as prescribed. I discussed that he would have a better healing process when blood sugars are normalized . Patient is eating and drinking without difficulties he has ambulated and up in the chair with his foot elevated. Exam Narrative: GENERAL: obsese,This is a well-nourished, well-developed patient, in no apparent distress. HEAD: normocephalic, atraumatic. EYES: PERRL. Sclera clear/white. Vision is grossly intact. EARS: External ears normal, auditory canals clear and without drainage, TMs normal without perforation. Hearing grossly intact. NOSE: External nose normal with no obvious nasal discharge, nares without redness, no rhinorrhea. THROAT: Mucous membranes moist, posterior pharynx clear. NECK: Neck supple, non-tender without lymphadenopathy, masses or thyromegaly. CARDIOVASCULAR: Regular rate and rhythm without murmurs, gallops, or rubs. RESPIRATORY: Clear to auscultation. Breath sounds equal bilaterally. No wheezes, rales, or rhonchi. GASTROINTESTINAL: Abdomen soft, non-tender, nondistended. Bowel sounds are active. No hepato-splenomegaly, or palpable masses. No guarding. SKIN:right foot and lower leg with edema,erythma , warm and tenderness with serous exudate , sloughing
[2022-07-09 12:54] LABS: Hemoglobin A1C 9.9 % (<5.7)
--- NOTE | 2022-07-09 14:05 | PC.NURSE ---
Ultrasound here to do ZOIE
[2022-07-09 16:38] LABS: Glucose Point of Care 222 mg/dl (65-105)
[2022-07-09] MEDS: ACETAMINOPHEN 325 MG TABLET 650 MG PO (18:18)
[2022-07-09] MEDS: AMOXICILLIN/CLAVULANATE K 875-125 MG TAB 1 TABLET PO (20:17)
[2022-07-09] MEDS: DOXYCYCLINE HYCLATE 100 MG TABLET PO (20:17)
[2022-07-09 20:19] LABS: Glucose Point of Care 214 mg/dl (65-105)
[2022-07-09] MEDS: traZODone HCL 50 MG TABLET PO (21:33)
[2022-07-10] VITALS: BP 123/67; PULSE 100; PULSE 103; RESP 20; TEMP 36.8; O2SAT 95
[2022-07-10 04:00] VITALS: PULSE 89
[2022-07-10] MEDS: HYDROcodone/acetaminophen (*CRX) 5-325 MG TABLET 1 TAB PO (04:59)
[2022-07-10 07:46] VITALS: BP 151/94; PULSE 85; RESP 17; TEMP 36.4; O2SAT 95
[2022-07-10 07:47] VITALS: PULSE 85
[2022-07-10] MEDS: DOXYCYCLINE HYCLATE 100 MG TABLET PO (08:17)
[2022-07-10] MEDS: FUROSEMIDE 40 MG TABLET PO (08:17)
[2022-07-10] MEDS: AMOXICILLIN/CLAVULANATE K 875-125 MG TAB 1 TABLET PO (08:17)
[2022-07-10] MEDS: PANTOPRAZOLE 40 MG TABLET PO (08:17)
[2022-07-10 08:18] VITALS: PULSE 75
[2022-07-10] MEDS: carvediloL 12.5 MG TABLET 25 MG PO (08:18)
[2022-07-10] MEDS: ASPIRIN 81 MG CHEWABLE TABLET PO (08:18)
[2022-07-10] MEDS: SPIRONOLACTONE 12.5 MG TABLET PO (08:18)
[2022-07-10] MEDS: SACUBITRIL/VALSARTAN 49-51 MG TABLET 1 TABLET PO (08:18)
[2022-07-10] MEDS: ROSUVASTATIN 10 MG TABLET 20 MG PO (08:18)
[2022-07-10] MEDS: SACCHAROMYCES BOULARDII 250 MG CAPSULE PO (08:18)
[2022-07-10] MEDS: ENOXAPARIN 40 MG/0.4 ML SYRINGE SUB-Q (08:19)
[2022-07-10] MEDS: INSULIN GLARGINE (*BKC) 100 UNITS/ML 20 UNITS SUB-Q (08:19)
[2022-07-10 08:56] LABS: Hematocrit 41.9 % (40.0-54.0); Hemoglobin 14.6 g/dL (14.0-18.0); Mean Corpuscular HGB Conc 34.8 g/dL (32.0-36.0); Mean Corpuscular Hemoglobin 31.4 pg (27.0-31.0); Mean Corpuscular Volume 90.1 fL (78.0-102.0); Mean Platelet Volume 9.4 fl (8.7-11.0); Platelet Count Result 242 K/mm3 (150-420); Red Blood Count 4.65 M/mm3 (4.70-6.10); Red Cell Distribution Width 12.9 % (11.6-14.4); White Blood Count 7.9 K/mm3 (4.8-10.8)
[2022-07-10 09:24] LABS: Anion Gap 7 mmol/L (8-16); Blood Urea Nitrogen 14 mg/dL (7-18); Calcium 9.1 mg/dL (8.5-10.1); Carbon Dioxide 25 mmol/L (21-32); Chloride 102 mmol/L (98-108); Estimated CRCL calculation 183 ml/min; Estimated Glomerular Filt Rate > 60; Glucose 255 mg/dL (70-99); Osmolality Calculated 287 mOsm/kg (285-295); Potassium 4.2 mmol/L (3.5-5.1); Sodium 134 mmol/L (136-145)
--- NOTE | 2022-07-10 10:07 | PM.DS ---
DS: Admitting Diagnosis Discharge Date 06/20/2022 Admitting Diagnosis diabetic Ulcer DS: Discharge Diagnosis Discharge Diagnosis (1) Hyperglycemia due to type 2 diabetes mellitus: Code(s): E11.65 - Type 2 diabetes mellitus with hyperglycemia Status: Acute Assessment and Plan: glucose 445>214 a1c 05/2022 9.5 Continue Accu-Cheks with sliding scale hypoglycemic protocol Continue diabetic diet (2) Congestive heart failure: Code(s): I50.9 - Heart failure, unspecified Status: Acute Assessment and Plan: compensated BNP 52 Continue lasix 40 mg daily weight daily CXR no acute findings (3) Cellulitis of foot: Code(s): L03.119 - Cellulitis of unspecified part of limb Status: Acute Assessment and Plan: continue ampicillin and vanc day 2 discontinued started doxycycline, Augmentin today secondary to foot ulcer wbc , lactic acid within normal limits crp elevated 2.[address] of foot no osteomyelitis noted continue wound care consulted wound care and they will follow up with patient on a weekly basis and recommendation are in the chart. pt will stay one more day to see how he responds to oral antibiotics ABIS ordered for the right leg. (4) Tobacco abuse: Code(s): Z72.0 - Tobacco use Status: Acute Assessment and Plan: Order nicotine patch (5) Obesity, Class III, BMI 40-49.9 (morbid obesity): Code(s): E66.01 - Morbid (severe) obesity due to excess calories Status: Acute Assessment and Plan: Educated on a healthy lifestyle (6) Diabetes mellitus: Code(s): E11.9 - Type 2 diabetes mellitus without complications Status: Acute Assessment and Plan: glucose 445>214>195 a1c 05/2022 9.5 Continue Accu-Cheks with sliding scale hypoglycemic protocol Continue diabetic diet (7) Hypertension: Code(s): I10 - Essential (primary) hypertension Status: Acute Assessment and Plan: Stable Continue carvedilol and spironolactone Vital signs as ordered Adjust medication as needed DS: Summary Hospital Course Reason for hospitalization: Cellulitis, Diabetic Ulcer , hyperglycemia, hyponatremia, leukocytosis Hospital Course: This is a 47-year-old male admitted to the hospital with a diabetic ulcer secondary to cellulitis. Upon arrival patient was hyperglycemic with a blood sugar in the 400s patient was treated with IV antibiotics vancomycin and Zosyn and subcutaneous insulin. Patient was seen by wound clinic and the recommendations have been provided on how the dressings to be changed and they will see him on outpatient. Patient was converted to oral Doxy and Augmentin will complete 10 days and follow-up with the wound clinic and PCP to ensure that infection is either gone or to see if he needs increased dosing. No osteomyelitis was identified on CT scan patient's blood sugars remain high discussed with patient's to make sure he is at least checking his blood sugar daily since he normally does not check it at all encouraged him to check blood sugars before meals and at bedtime. Potassium 4.2, sober sodium 134, BUN 14, creatinine 0.70, glucose 255, RBCs 4.65, WBC 7.9, hemoglobin 14.6, platelets 247 at this time patient is stable for discharge able to eat and drink and has remained afebrile at this time it is been my pleasure to care for this patient. Time Spent with Patient Time attestation: Total time spent providing and/or coordinating discharge services: Exam Narrative: GENERAL: obsese,This is a well-nourished, well-developed patient, in no apparent distress. HEAD: normocephalic, atraumatic. EYES: PERRL. Sclera clear/white. Vision is grossly intact. EARS: External ears normal, auditory canals clear and without drainage, TMs normal without perforation. Hearing grossly intact. NOSE: External nose normal with no obvious nasal discharge, nares without redness, no rhinorrhea. THROAT: Mucou
--- NOTE | 2022-07-10 10:45 | PC.NURSE ---
Reviewed discharge instructions with patient, focusing on education related to wound care. All questions answered. Pt awaiting ride.
[2022-07-10 11:47] LABS: Glucose Point of Care 260 mg/dl (65-105)
[2022-07-10 11:47] LABS: Glucose Point of Care 224 mg/dl (65-105)
--- NOTE | 2022-07-11 09:38 | PC.NURSE ---
Pt states he received and understood the discharge instructions. Pt also states I think you guys did an excellent job .
== END 2022-07-10 12:35 | disposition home health service (06) | DRG 383 ==
LOC: CHSED 07-07 01:32 → CHS2ND 07-09 07:40
PROVIDERS: Nurse Practitioner; Nurse Practitioner Family; Admitting Provider Internal Medicine; Emergency Provider Internal Medicine Critical Care Medicine; Visit Provider Internal Medicine
DX: L03.115 Cellulitis of right lower limb (principal); E11.621 Type 2 diabetes mellitus with foot ulcer; I11.0 Hypertensive heart disease with heart failure; I50.9 Heart failure, unspecified; E11.65 Type 2 diabetes mellitus with hyperglycemia; E66.01 Morbid (severe) obesity due to excess calories; L97.519 Non-pressure chronic ulcer of other part of right foot with unspecified severity; Z87.891 Personal history of nicotine dependence; Z68.41 Body mass index [BMI] 40.0-44.9, adult; Z79.82 Long term (current) use of aspirin
CPT/HCPCS: 36415; 71045; 73701; 80048; 80053; 80202; 81001; 82948; 83036; 83605; 83690; 83735; 83880; 84443; 84484; 85025; 85027; 85380; 85610; 85730; 86140; 87040; 87070; 87147; 87186; 87205; 93005; 93922; 96365; 96375; 99285; A9270; J0295; J1650; J1815; J3370; J7040; J7060; Q9967

== ENCOUNTER 2022-08-13 09:20 | Outpatient (RCR) | payer OTHER, SELFPAY | END 2022-08-15 23:59 | disposition home or self-care (01) | LOC: CHSWOUND 09:20 | PROVIDERS: Visit Provider Nurse Practitioner Acute Care | DX: E11.621 Type 2 diabetes mellitus with foot ulcer (principal); L97.512 Non-pressure chronic ulcer of other part of right foot with fat layer exposed; E11.65 Type 2 diabetes mellitus with hyperglycemia; I11.0 Hypertensive heart disease with heart failure; I50.9 Heart failure, unspecified; J45.909 Unspecified asthma, uncomplicated; K21.9 Gastro-esophageal reflux disease without esophagitis; E66.9 Obesity, unspecified; F17.210 Nicotine dependence, cigarettes, uncomplicated; Z79.4 Long term (current) use of insulin | CPT/HCPCS: 11042; 99214; G0463 ==

== ENCOUNTER 2022-09-21 13:10 | Emergency (ER) | payer OTHER, SELFPAY ==
--- NOTE | 2022-09-21 13:15 | ED.SKABFB ---
HPI - Skin/Abscess/Foreign Bdy General Chief complaint: Wound/Laceration Stated complaint: R Foot pain rotten toe nail ulcer on heel Time Seen by Provider: 09/21/22 13:13 Source: patient and RN notes reviewed Mode of arrival: ambulatory Limitations: no limitations History of Present Illness HPI narrative: patient states that he has a callus on his right heel that is causing him some pain when it is palpated. He is concerned that it is a diabetic foot ulcer and he has had problems with cellulitis in the past. He is also having difficulty with the right great toe. He has onychomycosis of the great toenail and he has been picking at it and pulling some of the nail off his nail bed at the tip of his toe. This has caused him also some swelling and redness around the periphery of the nail at the base and the lateral aspect. That is very tender to touch. complaint: abscess/boil Onset (ago): day(s) (2-3) Location: RLE Severity: similar to previous episodes Quality: burning, aching, dull and constant Pain Consistency: constant Relieving factors: none Exacerbating factors: palpation and movement Treatments prior to arrival: none Related Data Home Medications Medication Instructions Recorded Confirmed aspirin 81 mg tablet 81 mg PO DAILY 06/02/21 09/21/22 Allergies Allergy/AdvReac Type Severity Reaction Status Date / Time amlodipine Allergy Unknown Verified 09/21/22 13:24 tramadol Allergy Unknown Verified 09/21/22 13:24 Review of Systems Review of Systems: All systems reviewed & are unremarkable except as noted in HPI and below Constitutional: Constitutional: Denies chills and Denies fever(s) Gastrointestinal: Gastrointestinal: Denies nausea and Denies vomiting PMFSH Past Medical History Medical History Congestive heart failure Diabetes mellitus Histoplasma capsulatum infection Hypertension Nicotine addiction Obesity, Class III, BMI 40-49.9 (morbid obesity) Surgical History Surgical History H/O hernia repair Family History Family History Father Heart disease Mother Diabetes mellitus Social History Social History Smoking packs per day: 0.5 Smoking cigarettes per day: 10.0 Smoking status: Former smoker Alcohol intake: current Drinks per week: 2 Alcohol use details: alcohol use some days each week Substance use: never Gender identity (if verbalized by the patient): Male Sexual Orientation (if Verbalized by the Patient): Straight or Heterosexual Spiritual care concerns: No Exam Const: General: healthy appearing and no acute distress Nutritional Appearance: well nourished and obese morbidly obese Orientation/consciousness: patient oriented x3 Limitations: no limitations HENMT: Head: normal to inspection Ears: external ears normal Face and sinus: normal facial exam Eyes: Conjunctivae: conjunctivae normal Pupils: Equal, round and reactive pupils present EOM: EOMs intact bilaterally Neck: Neck: normal visual inspection Resp: Effort & Inspection: normal respiratory effort Auscultation: clear to auscultation bilaterally Cardio: Rate: regular rate Rhythm: regular rhythm GI: Auscultation: normal bowel sounds Back/Spine/Pelvis: Cervical Spine: cervical ROM normal Thoracic/Lumbar Spine: thoraco-lumbar ROM normal Skin: General skin exam: normal color, erythema and fluctuance ( Soft tissue periphery of right great toenail) Lesions: lesion noted ( callus lateral aspect right heel no evidence of infection) Neuro: General: patient oriented x3, moves all extremities, no focal motor deficits and CN's II-XI intact bilaterally Speech: normal speech Gait exam (Neuro): Normal gait present Extrem: General: normal to inspection and no clubbing, cyanosis or edema Psych: M
[2022-09-21 13:19] VITALS: BP 138/92; PULSE 110; RESP 16; TEMP 36.4; O2SAT 97
[2022-09-21 13:41] VITALS: BP 138/92; PULSE 110; RESP 16; TEMP 36.4; O2SAT 97
== END 2022-09-21 13:43 | disposition home or self-care (01) ==
PROVIDERS: Emergency Provider Emergency Medicine
DX: L84 Corns and callosities (principal); L03.031 Cellulitis of right toe
CPT/HCPCS: 99283

== ENCOUNTER 2022-12-08 18:31 | Emergency (ER) | payer OTHER, SELFPAY ==
--- NOTE | ~2022-12-08 | CT_ITS ---
EXAMINATION: CTA chest PE protocol DATE: 12/08/2022 20:59 INDICATION: shortness of breath X 2 DAYS with elevated D-dimer TECHNIQUE: Computed tomography angiography (CTA) of the chest was performed with 100 mL Omnipaque-350 intravenous contrast timed to evaluate the pulmonary arteries. Coronal maximum intensity projection 3D-reconstructions were created by the technologist. The dose-length product (DLP) was 1074.14 mGy-cm . Automated exposure control and iterative reconstruction technique were employed. COMPARISON: X-ray chest, same date. FINDINGS: Lung parenchyma and airways: Diffuse reticular opacities with scattered areas of tree-in-bud and cent rilobular groundglass opacities. Peripheral fibrotic changes. Airways are clear. Pleura: Unremarkable. Thoracic inlet, axillae and chest wall: Unremarkable. Thoracic aorta: Normal. Mediastinum: Dilated central pulmonary arteries as can be seen with pulmonary arterial hypertension. Small hiatal hernia containing a small focus of uncomplicated appearing mesenteric fat. Heart and pericardium: Normal. Coronary artery calcifications: Mild. Upper abdomen: No significant finding. Bones: No acute osseous finding. Pulmonary arteries: Study quality: Degraded by quantum mottle, suboptimal contrast bolus, and beam hagen rdening such that subsegmental and non-occlusive segmental emboli could be missed. No acute pulmonary emboli detected. Weblike chronic filling defect versus artifact in the interlobar artery. IMPRESSION: 1. Degraded examination as detailed above, such that subsegmental and nonocclusive segmental emboli c ould be missed. No CT evidence of acute central or occlusive segmental pulmonary embolus. 2. Pulmonary opacities may represent bronchiolitis, as can be seen with atypical infection, asthma, a spiration, and small airways disease. Reviewed, dictated and finalized at location K. RT ADMINISTRATOR IMPRESSION: 1. Degraded examination as detailed above, such that subsegmental and nonocclus lake segmental emboli could be missed. No CT evidence of acute central or occlus lake segmental pulmonary embolus. 2. Pulmonary opacities may represent bronchiolitis, as can be seen with atypica l infection, asthma, aspiration, and small airways disease.
--- NOTE | ~2022-12-08 | XR_ITS ---
EXAMINATION: XR chest 1V portable Exam Date/Time: 12/08/2022 18:50 VITICULTURIST HISTORY: shortness of breath Comparison: 07/06/2022. RESULT: Lines, tubes, and devices: None. Lungs and pleura: Clear. Cardiomediastinal silhouette: Stable. Other: No acute osseous or upper abdominal finding. IMPRESSION: No acute cardiopulmonary process. Reviewed, dictated and finalized at location K. CULTURIST
[2022-12-08 18:36] VITALS: BP 140/92; PULSE 92; RESP 18; TEMP 36.4; O2SAT 97
--- NOTE | 2022-12-08 18:42 | ECG_ITS ---
Measurements Intervals Roland Rate: 91 P: 19 HI: 150 QRS: 44 QRSD: 88 T: 40 QT: 340 QTc: 419 Interpretive Statements SINUS RHYTHM LOW QRS VOLTAGE IN PRECORDIAL LEADS CONSIDER ANTERIOR INFARCT, AGE INDETERMINATE BASELINE WANDER- II, III, AVL, AVF ABNORMAL ECG COMPARED TO ECG 07/06/2022 23:52:54 SINUS RHYTHM NOW PRESENT Electronically Signed On 12-09-2022 7:28:05 DIGITAL MARKETER by Cornelius Casas D.O.
[2022-12-08] MEDS: IPRATROPIUM 0.5 MG/ALBUTEROL SULFATE 2.5 MG AMPUL.NEB 3 ML INHALATION (19:04)
[2022-12-08 19:05] VITALS: PULSE 94; RESP 20; O2SAT 99
[2022-12-08 19:06] VITALS: PULSE 94; RESP 20; O2SAT 99
[2022-12-08] MEDS: methylPREDNISolone SOD SUCC 125 MG VIAL IV PUSH (19:13)
[2022-12-08 19:14] VITALS: O2SAT 96
[2022-12-08 19:42] LABS: SARS-CoV-2 RNA PCR Negative (Negative)
[2022-12-08 19:57] LABS: Basophils Absolute Auto 0.09 K/mm3 (0.00-0.10); Eosinophils Absolute Auto 0.38 K/mm3 (0.02-0.50); Eosinophils Percent Auto 4.2 % (1.0-6.0); Hematocrit 40.9 % (40.0-54.0); Hemoglobin 14.2 g/dL (14.0-18.0); Immature Granulocyte Absolute 0.06 K/mm3 (0.00-0.00); Immature Granulocyte Percent A 0.7 % (0.0-0.0); Lymphocytes Percent Auto 41.8 % (18.0-42.0); Mean Corpuscular HGB Conc 34.7 g/dL (32.0-36.0); Mean Corpuscular Hemoglobin 30.8 pg (27.0-31.0); Mean Corpuscular Volume 88.7 fL (78.0-102.0); Mean Platelet Volume 10.4 fl (8.7-11.0); Monocytes Absolute Auto 0.66 K/mm3 (0.10-0.90); Monocytes Percent Auto 7.3 % (2.0-11.0); Neutrophils Absolute Auto 4.1 K/mm3 (1.7-7.2); Platelet Count Result 210 K/mm3 (150-420); Red Blood Count 4.61 M/mm3 (4.70-6.10); Red Cell Distribution Width 12.6 % (11.6-14.4); White Blood Count 9.1 K/mm3 (4.8-10.8)
[2022-12-08 19:58] LABS: Oxygen Content ABG 18.9 %vol (16.0-22.0); Oxygen Saturation ABG 94.7 % (95-97); PCO2 ABG 37.3 mmHg (35-45); PO2 ABG 73.5 mmHg (80-90); Total Hemoglobin 14.3 g/dL (12.0-18.0); pH ABG 7.43 (7.35-7.45)
[2022-12-08] MEDS: ALPRAZolam (*CRX) 0.5 MG TABLET PO (20:00)
[2022-12-08 20:03] LABS: Device ROOM AIR; Modified Allen's Test Pass; Site Drawn RIGHT RADIAL
[2022-12-08 20:16] LABS: Alanine Aminotransferase 23 U/L (16-63); Albumin Level 3.1 g/dL (3.4-5.0); Alkaline Phosphatase 77 U/L (46-116); Anion Gap 10 mmol/L (8-16); Aspartate Amino Transferase 17 U/L (15-37); Bilirubin,Total 0.2 mg/dL (0.00-1.00); Blood Urea Nitrogen 13 mg/dL (7-18); Calcium 8.9 mg/dL (8.5-10.1); Carbon Dioxide 25 mmol/L (21-32); Chloride 102 mmol/L (98-108); Estimated CRCL calculation 146 ml/min; Estimated Glomerular Filt Rate > 60; Glucose 381 mg/dL (70-99); Magnesium 1.8 mg/dL (1.8-2.4); NT Pro B Type Natriuretic Pept 242 pg/mL (0-125); Osmolality Calculated 300 mOsm/kg (285-295); Potassium 3.8 mmol/L (3.5-5.1); Sodium 137 mmol/L (136-145); Total Protein 7.1 g/dL (6.4-8.2); Troponin I 5.9 ng/L (0.00-60.4)
[2022-12-08 20:22] LABS: INR 0.9; Partial Thromboplastin Time 23.8 SEC (23.90-30.70); Prothrombin Time 10.1 Seconds (9.50-12.10)
[2022-12-08 20:28] LABS: D Dimer 0.65 mg/L (0.19-0.50)
--- NOTE | 2022-12-08 20:41 | ED.SOB ---
HPI - SOB/Dyspnea General Chief Complaint: Shortness of Breath/Dyspnea Stated Complaint: shortness of breath Source: patient and family Mode of arrival: ambulatory Limitations: no limitations History of Present Illness HPI Narrative: this is a 47-year-old gentleman that has a history of asthma presents with a one-week history of shortness of breath has worsened over the last couple of hours takes Symbicort and albuterol at home there is no fever chills no cough or congestion no chest pain no nausea vomiting no abdominal pain. MD elicited complaint: shortness of breath Pertinent past history: asthma Onset (ago): day(s) Severity: moderate Relieving factors: bronchodilators Known history of: asthma Related Data Home Medications Medication Instructions Recorded Confirmed aspirin 81 mg tablet 81 mg PO DAILY 06/02/21 09/21/22 Allergies Allergy/AdvReac Type Severity Reaction Status Date / Time amlodipine Allergy Unknown Verified 09/21/22 13:24 tramadol Allergy Unknown Verified 09/21/22 13:24 Review of Systems Review of Systems: All systems reviewed & are unremarkable except as noted in HPI and below PMFSH Past Medical History Medical History Congestive heart failure Diabetes mellitus Histoplasma capsulatum infection Hypertension Nicotine addiction Obesity, Class III, BMI 40-49.9 (morbid obesity) Surgical History Surgical History H/O hernia repair Family History Family History Father Heart disease Mother Diabetes mellitus Social History Social History Smoking packs per day: 0.5 Smoking cigarettes per day: 10.0 Smoking status: Former smoker Alcohol intake: current Drinks per week: 2 Alcohol use details: alcohol use some days each week Substance use: never Gender identity (if verbalized by the patient): Male Sexual Orientation (if Verbalized by the Patient): Straight or Heterosexual Spiritual care concerns: No Exam Const: General: healthy appearing and no acute distress Nutritional Appearance: well nourished Orientation/consciousness: patient oriented x3 Limitations: no limitations HENMT: Head: normal to inspection Face/Nose/Sinus: Normal external nose present Face and sinus: normal facial exam Mouth: Yes Normal oral and palatal mucosa present Eyes: Conjunctivae: conjunctivae normal Pupils: Equal, round and reactive pupils present EOM: EOMs intact bilaterally Neck: Neck: normal visual inspection and no lymphadenopathy Chest: Chest palpation & inspection: normal inspection of the chest Resp: Effort & Inspection: normal respiratory effort Auscultation: clear to auscultation bilaterally Cardio: Rate: regular rate Rhythm: regular rhythm GI: GI Palp: Yes Soft to palpation Auscultation: normal bowel sounds : General: Yes bladder normal to palpation Back/Spine/Pelvis: Back: no CVA tenderness Skin: General skin exam: normal color Rashes: no rashes Wounds: no wounds Neuro: General: patient oriented x3, moves all extremities, no meningeal signs and no focal motor deficits Extrem: General: normal to inspection, no clubbing, cyanosis or edema and no pedal edema Psych: Mental Status: mental status grossly normal Course Course Emergency Course: Chest x-ray reviewed with patient which shows no acute cardiopulmonary abnormality, labs and EKG reviewed with patient, the patient had an elevated D-dimer and obtained a CTA, patient received DuoNebs and IV steroid. Vital Signs Vital signs: Vital Signs Temperature 36.4 C 12/08/22 18:36 Pulse Rate 92 12/08/22 18:36 Respiratory Rate 18 12/08/22 18:36 Blood Pressure 140/92 H 12/08/22 18:36 Pulse Oximetry 97 12/08/22 18:36 Oxygen Delivery Room Air 12/08/22 18:36 Temperature 36.
[2022-12-08 21:18] VITALS: BP 153/93; PULSE 98; RESP 18; TEMP 36.6; O2SAT 98
--- NOTE | 2022-12-15 13:46 | PC.NURSE ---
final blood culture reports x2 reviewed. no growth after 5 days. no change in plan of care.
== END 2022-12-08 21:26 | disposition home or self-care (01) ==
PROVIDERS: Emergency Provider Emergency Medicine
DX: J45.901 Unspecified asthma with (acute) exacerbation (principal); I11.0 Hypertensive heart disease with heart failure; I50.9 Heart failure, unspecified; E11.9 Type 2 diabetes mellitus without complications; Z87.891 Personal history of nicotine dependence; Z20.822 Contact with and (suspected) exposure to COVID-19
CPT/HCPCS: 36415; 36600; 71045; 71275; 80053; 82805; 83735; 83880; 84484; 85025; 85380; 85610; 85730; 87040; 93005; 94640; 96374; 99284; A9270; J2930; Q9967; U0003; U0005

== ENCOUNTER 2023-01-17 10:50 | Outpatient (CLI) | payer OTHER, SELFPAY ==
[2023-01-17 11:07] LABS: Basophils Absolute Auto 0.05 K/mm3 (0.00-0.10); Basophils Percent Auto 0.6 % (0.0-1.0); Eosinophils Absolute Auto 0.35 K/mm3 (0.02-0.50); Eosinophils Percent Auto 4.4 % (1.0-6.0); Hematocrit 41.6 % (40.0-54.0); Hemoglobin 14.5 g/dL (14.0-18.0); Immature Granulocyte Absolute 0.05 K/mm3 (0.00-0.00); Immature Granulocyte Percent A 0.6 % (0.0-0.0); Lymphocytes Absolute Auto 2.19 K/mm3 (1.10-4.50); Lymphocytes Percent Auto 27.3 % (18.0-42.0); Mean Corpuscular HGB Conc 34.9 g/dL (32.0-36.0); Mean Corpuscular Hemoglobin 30.7 pg (27.0-31.0); Mean Corpuscular Volume 88.1 fL (78.0-102.0); Mean Platelet Volume 9.1 fl (8.7-11.0); Monocytes Absolute Auto 0.61 K/mm3 (0.10-0.90); Monocytes Percent Auto 7.6 % (2.0-11.0); Neutrophils Absolute Auto 4.8 K/mm3 (1.7-7.2); Neutrophils Percent Auto 59.5 % (50.0-70.0); Platelet Count Result 251 K/mm3 (150-420); Red Blood Count 4.72 M/mm3 (4.70-6.10); Red Cell Distribution Width 12.6 % (11.6-14.4)
[2023-01-17 11:20] LABS: Hemoglobin A1C 9.6 % (<5.7)
[2023-01-17 12:13] LABS: Alanine Aminotransferase 29 U/L (16-63); Albumin Level 3.3 g/dL (3.4-5.0); Alkaline Phosphatase 91 U/L (46-116); Anion Gap 10 mmol/L (8-16); Aspartate Amino Transferase 14 U/L (15-37); Bilirubin,Total 0.4 mg/dL (0.00-1.00); Blood Urea Nitrogen 9 mg/dL (7-18); Calcium 9.1 mg/dL (8.5-10.1); Carbon Dioxide 26 mmol/L (21-32); Chloride 104 mmol/L (98-108); Cholesterol 164 mg/dL (0-200); Estimated Glomerular Filt Rate > 60; Free T4 Free Thyroxine 1.07 ng/dL (0.76-1.46); Glucose 173 mg/dL (70-99); HDL Direct 38 mg/dL (40-60); LDL Cholesterol Calculated 103 mg/dL (<130); NT Pro B Type Natriuretic Pept 23 pg/mL (0-125); Osmolality Calculated 292 mOsm/kg (285-295); Potassium 4.3 mmol/L (3.5-5.1); Sodium 140 mmol/L (136-145); Thyroid Stimulating Hormone 1.05 uIU/mL (0.36-3.74); Total Protein 6.8 g/dL (6.4-8.2); Triglycerides 116 mg/dL (0-150)
== END 2023-01-17 10:51 | disposition home or self-care (01) ==
LOC: CHSLAB 10:52
PROVIDERS: PCP Internal Medicine; Visit Provider Internal Medicine
DX: I10 Essential (primary) hypertension (principal); I50.9 Heart failure, unspecified; E11.9 Type 2 diabetes mellitus without complications; G62.9 Polyneuropathy, unspecified
CPT/HCPCS: 36415; 80053; 80061; 83036; 83880; 84439; 84443; 84481; 85025

== ENCOUNTER 2023-01-18 16:00 | Outpatient (CLI) | payer OTHER, SELFPAY ==
[2023-01-18 16:16] LABS: Appearance Urine Clear (Clear); Bilirubin Urine Negative (Negative); Blood Urine Negative (Negative); Color Urine Light Yellow (Yellow); Glucose Urine UA 3+ (Negative); Ketones Urine Negative (Negative); Leukocyte Esterase Ur Negative (Negative); Nitrate Urine Negative (Negative); Protein Urine Negative (Negative); Urobilinogen Urine 0.2 mg/dL (0.2-1.0)
[2023-01-18 16:22] LABS: Add Urine Microscopic? NO; Bacteria Urine None seen /hpf; RBC Urine None seen /hpf (0-2); Squamous Epithelial Cell Urine Rare /hpf (Few); WBC Urine None seen /hpf (0-3)
[2023-01-18 16:24] LABS: Creatinine Urine 29.39 mg/dL (40-278); MALB Creatinine Ratio 44.2 mg/g (0-30); Microalbumin Urine Random < 13.0 mg/L
== END 2023-01-18 16:01 | disposition home or self-care (01) ==
LOC: CHSLAB 16:02
PROVIDERS: PCP Internal Medicine; Visit Provider Internal Medicine
DX: I10 Essential (primary) hypertension (principal); I50.9 Heart failure, unspecified; E11.9 Type 2 diabetes mellitus without complications; G62.9 Polyneuropathy, unspecified
CPT/HCPCS: 81003; 82043

== ENCOUNTER 2023-04-15 10:56 | Emergency (ER) | payer OTHER, SELFPAY ==
[2023-04-15 10:55] VITALS: BP 133/84; PULSE 112; RESP 18; TEMP 36.6; O2SAT 98
--- NOTE | 2023-04-15 11:09 | ECG_ITS ---
Measurements Intervals Ethel Rate: 111 P: 51 PA: 149 QRS: 58 QRSD: 106 T: 5 QT: 342 QTc: 465 Interpretive Statements SINUS TACHYCARDIA INFERIOR INFARCT, AGE INDETERMINATE BASELINE ARTIFACT- III, AVF ABNORMAL ECG COMPARED TO ECG 12/08/2022 18:55:38 SINUS TACHYCARDIA NOW PRESENT Electronically Signed On 04-15-2023 13:53:04 CDT by Cornelius Casas D.O.
--- NOTE | 2023-04-15 11:10 | ED.GENADULT ---
HPI - General Adult General Chief complaint: Extremity Injury, Lower Stated complaint: Foot/ankle pain Time Seen by Provider: 04/15/23 11:03 History of Present Illness HPI narrative: Clovis is a 48M with a PMH of nicotine addiciton, CHF, DMII, HTN and diabetes that presented to the ED with pain in his right ankle that started yesterday evening while he was laying down. It has become worse throughout the night. It is exquisitely painful and even pulling a blanket across it causes severe pain. There was no injury or trauma. He denies fevers, chills, N/V, diarrhea, dyspnea and chest pain. He does have a family history of gout. Related Data Home Medications Medication Instructions Recorded Confirmed aspirin 81 mg tablet 81 mg PO DAILY 06/02/21 04/15/23 canagliflozin 300 mg tablet 300 mg PO DAILY 04/15/23 04/15/23 (Invokana) gabapentin 400 mg capsule 400 mg PO TID 04/15/23 04/15/23 Allergies Allergy/AdvReac Type Severity Reaction Status Date / Time amlodipine Allergy Unknown Verified 04/15/23 10:58 tramadol Allergy Unknown Verified 04/15/23 10:58 Review of Systems Review of Systems: All systems reviewed & are unremarkable except as noted in HPI and below PMFSH Past Medical History Medical History Congestive heart failure Diabetes mellitus Histoplasma capsulatum infection Hypertension Nicotine addiction Obesity, Class III, BMI 40-49.9 (morbid obesity) Surgical History Surgical History H/O hernia repair Family History Family History Father Heart disease Mother Diabetes mellitus Social History Social History Smoking packs per day: 0.5 Smoking cigarettes per day: 10.0 Smoking status: Former smoker Alcohol intake: current Drinks per week: 2 Alcohol use details: alcohol use some days each week Substance use: never Gender identity (if verbalized by the patient): Male Sexual Orientation (if Verbalized by the Patient): Straight or Heterosexual Spiritual care concerns: No Exam Const: General: healthy appearing and no acute distress Nutritional Appearance: well nourished Orientation/consciousness: patient oriented x3 HENMT: Head: normal to inspection Ears: external ears normal Face/Nose/Sinus: Normal external nose present Eyes: Conjunctivae: conjunctivae normal Pupils: Equal, round and reactive pupils present Neck: Neck: normal visual inspection and no lymphadenopathy Chest: Chest palpation & inspection: normal inspection of the chest Resp: Effort & Inspection: normal respiratory effort Auscultation: clear to auscultation bilaterally Cardio: Rate: tachycardic Rhythm: regular rhythm GI: Inspection: non-distended GI Palp: Yes Soft to palpation, No Tenderness to palpation present (GI) and No Guarding due to palpation present (GI) Skin: Other: Stasis dermatitis on the lower extremities bilaterally. He also has a shallow ulcer on the lateral right lower extremity just superior to the ankle with some beefy red erythema surrounding it. Neuro: General: patient oriented x3 and moves all extremities Cranial nerves: Yes Nystagmus not present Speech: normal speech Extrem: General: normal to inspection Other: Right lateral ankle is warm to the touch and very painful to even the lightest touch Symmetrical lower extremity swelling with 3+ pitting edema bilaterally EKG showed sinus tachycardia with a rate of [address] elevation or depression or ectopy Psych: Mental Status: mental status grossly normal Affect: normal affect Course Course Emergency Course: given morphine for pain. Given cephalex for possible cellulitis. Labs showed mild anemia, mild hypokalemia, elevated Cr. at 1.58 and GFR of 47 but glucose was very high at 456. Given 18u
[2023-04-15 11:23] LABS: Basophils Absolute Auto 0.08 K/mm3 (0.00-0.10); Basophils Percent Auto 0.8 % (0.0-1.0); Eosinophils Absolute Auto 0.31 K/mm3 (0.02-0.50); Eosinophils Percent Auto 3.1 % (1.0-6.0); Hemoglobin 13.1 g/dL (14.0-18.0); Immature Granulocyte Absolute 0.05 K/mm3 (0.00-0.00); Immature Granulocyte Percent A 0.5 % (0.0-0.0); Lymphocytes Absolute Auto 2.44 K/mm3 (1.10-4.50); Lymphocytes Percent Auto 24.2 % (18.0-42.0); Mean Corpuscular HGB Conc 34.5 g/dL (32.0-36.0); Mean Platelet Volume 9.5 fl (8.7-11.0); Monocytes Absolute Auto 1.01 K/mm3 (0.10-0.90); Neutrophils Absolute Auto 6.2 K/mm3 (1.7-7.2); Neutrophils Percent Auto 61.4 % (50.0-70.0); Platelet Count Result 244 K/mm3 (150-420); Red Blood Count 4.37 M/mm3 (4.70-6.10); Red Cell Distribution Width 12.4 % (11.6-14.4); White Blood Count 10.1 K/mm3 (4.8-10.8)
[2023-04-15 11:37] LABS: Alanine Aminotransferase 31 U/L (16-63); Albumin Level 3.2 g/dL (3.4-5.0); Alkaline Phosphatase 88 U/L (46-116); Anion Gap 11 mmol/L (8-16); Aspartate Amino Transferase 20 U/L (15-37); Bilirubin,Total 0.5 mg/dL (0.00-1.00); Blood Urea Nitrogen 17 mg/dL (7-18); CRP 3.2 mg/dL (0.0-0.9); Calcium 9.3 mg/dL (8.5-10.1); Carbon Dioxide 23 mmol/L (21-32); Chloride 96 mmol/L (98-108); Estimated CRCL calculation 88 ml/min; Estimated Glomerular Filt Rate 47; Osmolality Calculated 291 mOsm/kg (285-295); Potassium 3.4 mmol/L (3.5-5.1); Sodium 130 mmol/L (136-145); Total Protein 6.8 g/dL (6.4-8.2); Uric Acid 5.9 mg/dL (3.5-7.2)
[2023-04-15 11:39] LABS: Glucose 456 mg/dL (70-99)
--- NOTE | 2023-04-15 11:39 | PC.NURSE ---
Glucose of 456, ERP made aware.
[2023-04-15 11:44] LABS: NT Pro B Type Natriuretic Pept 13 pg/mL (0-125)
[2023-04-15] MEDS: CEPHALEXIN 500 MG CAPSULE PO (11:53)
[2023-04-15] MEDS: INSULIN HUMAN REGULAR (*BKC) 1,000 UNITS/10 ML VIAL 18 UNITS IV PUSH (11:56)
[2023-04-15] MEDS: MORPHINE SULFATE (*CRX) 4 MG/ML INJ IV PUSH (11:56)
[2023-04-15 12:17] LABS: Amphetamine Screen Urine Positive (Negative); Barbiturate Screen Urine Negative (Negative); Benzodiazepines Screen Urine Negative (Negative); Cannabinoid Screen Urine Negative (Negative); Cocaine Screen Urine Negative (Negative); Methadone Screen Urine Negative (Negative); Opiate Screen Urine Negative (Negative); Phencyclidine Screen Urine Negative (Negative)
--- NOTE | 2023-04-15 12:24 | PC.NURSE ---
PT IS SITTING ON STRETCHER WITH MOTHER AT BEDSIDE. PT HAS BEEN MEDICATED, AWAITING ERP DECISION. PT IS MOANING AND RESTLESS. WILL CONTINUE TO MONITOR.
[2023-04-15 12:49] LABS: Glucose Point of Care 258 mg/dl (65-105)
[2023-04-15 12:51] LABS: Glucose Point of Care 338 mg/dl (65-105)
--- NOTE | 2023-04-15 12:52 | PC.NURSE ---
ERROR FOR 258 FSBS, THE MACHINE NEEDED QC. PT ACTUAL FSBS 338.
--- NOTE | 2023-04-15 12:53 | PC.NURSE ---
NO CHANGE IN PT STATUS. MOTHER AT BEDSIDE. PT IS AWAITING ERP DECISION. PT REPOSITIONED ON STRETCHER. WILL CONTINUE TO MONITOR.
[2023-04-15 12:57] VITALS: BP 151/80; PULSE 98; RESP 18; O2SAT 98
--- NOTE | 2023-04-15 13:48 | PC.NURSE ---
REPEAT FSBS 289, ERP AWARE. PT IS SLEEPING IN EXAM ROOM WITHOUT DISTRESS. MOTHER AT BEDSIDE. WILL CONTINUE TO MONITOR.
[2023-04-15 13:50] LABS: Glucose Point of Care 289 mg/dl (65-105)
[2023-04-15 14:05] VITALS: BP 148/87; PULSE 90; RESP 20; O2SAT 98
== END 2023-04-15 14:05 | disposition home or self-care (01) ==
PROVIDERS: Emergency Provider Family Medicine; PCP Internal Medicine
DX: M10.9 Gout, unspecified (principal); E11.65 Type 2 diabetes mellitus with hyperglycemia; L03.115 Cellulitis of right lower limb; I11.0 Hypertensive heart disease with heart failure; I50.9 Heart failure, unspecified; Z79.82 Long term (current) use of aspirin; Z79.84 Long term (current) use of oral hypoglycemic drugs; Z87.891 Personal history of nicotine dependence; E66.01 Morbid (severe) obesity due to excess calories; Z68.42 Body mass index [BMI] 45.0-49.9, adult
CPT/HCPCS: 36415; 80053; 80307; 82948; 83880; 84484; 84550; 85025; 86140; 93005; 96374; 96375; 99284; A9270; J1815; J2270

== ENCOUNTER 2023-04-17 16:44 | Outpatient (CLI) | payer OTHER, SELFPAY ==
--- NOTE | ~2023-04-17 | XR_ITS ---
EXAM: XR foot RT 2V DATE: 04/17/2023 17:34 HISTORY: right foot pain, cellulitis . COMPARISON: None available. FINDINGS: Normal mineralization. No fracture or dislocation. No lytic or blastic lesion. Mild scatte red degenerative changes. Pes planus. Plantar enthesopathy. No erosion or periosteal change. Linear r adiopaque foreign body in the lateral soft tissues roughly at the level of the cuboid. Mild diffuse s oft tissue swelling in the forefoot. IMPRESSION: No acute osseous finding in the right foot. Radiopaque linear foreign body in the lateral soft tissues with forefoot soft tissue swelling. Reviewed, dictated and finalized at location K. IMPRESSION: No acute osseous finding in the right foot. Radiopaque linear forei gn body in the lateral soft tissues with forefoot soft tissue swelling.
[2023-04-17 17:17] LABS: Basophils Absolute Auto 0.07 K/mm3 (0.00-0.10); Eosinophils Absolute Auto 0.29 K/mm3 (0.02-0.50); Hematocrit 39.2 % (40.0-54.0); Hemoglobin 13.8 g/dL (14.0-18.0); Immature Granulocyte Absolute 0.04 K/mm3 (0.00-0.00); Immature Granulocyte Percent A 0.6 % (0.0-0.0); Lymphocytes Absolute Auto 1.89 K/mm3 (1.10-4.50); Lymphocytes Percent Auto 26.1 % (18.0-42.0); Mean Corpuscular HGB Conc 35.2 g/dL (32.0-36.0); Mean Corpuscular Hemoglobin 30.5 pg (27.0-31.0); Mean Corpuscular Volume 86.7 fL (78.0-102.0); Mean Platelet Volume 9.5 fl (8.7-11.0); Monocytes Absolute Auto 0.63 K/mm3 (0.10-0.90); Monocytes Percent Auto 8.7 % (2.0-11.0); Neutrophils Absolute Auto 4.3 K/mm3 (1.7-7.2); Neutrophils Percent Auto 59.6 % (50.0-70.0); Platelet Count Result 231 K/mm3 (150-420); Red Blood Count 4.52 M/mm3 (4.70-6.10); Red Cell Distribution Width 12.3 % (11.6-14.4); White Blood Count 7.2 K/mm3 (4.8-10.8)
[2023-04-17 17:33] LABS: Alanine Aminotransferase 26 U/L (16-63); Albumin Level 2.9 g/dL (3.4-5.0); Alkaline Phosphatase 88 U/L (46-116); Anion Gap 11 mmol/L (8-16); Aspartate Amino Transferase 17 U/L (15-37); Bilirubin,Total 0.3 mg/dL (0.00-1.00); Blood Urea Nitrogen 12 mg/dL (7-18); CRP 2.3 mg/dL (0.0-0.9); Calcium 8.3 mg/dL (8.5-10.1); Carbon Dioxide 24 mmol/L (21-32); Chloride 103 mmol/L (98-108); Estimated Glomerular Filt Rate > 60; Glucose 250 mg/dL (70-99); Osmolality Calculated 293 mOsm/kg (285-295); Sodium 138 mmol/L (136-145); Total Protein 6.5 g/dL (6.4-8.2); Uric Acid 2.5 mg/dL (3.5-7.2)
== END 2023-04-17 16:45 | disposition home or self-care (01) ==
LOC: CHSLAB 16:47
PROVIDERS: PCP Internal Medicine; Visit Provider Internal Medicine
DX: M79.671 Pain in right foot (principal); L03.90 Cellulitis, unspecified; E11.9 Type 2 diabetes mellitus without complications; M54.2 Cervicalgia; M79.5 Residual foreign body in soft tissue
CPT/HCPCS: 36415; 73620; 80053; 84550; 85025; 86140; 87070; 87075; 87147; 87186; 87205; 87254; 87255

== ENCOUNTER 2023-04-23 12:52 | Outpatient (CLI) | payer OTHER, SELFPAY ==
[2023-04-23 13:09] LABS: Appearance Urine Slightly Cloudy (Clear); Bilirubin Urine Negative (Negative); Blood Urine Negative (Negative); Color Urine Light Yellow (Yellow); Glucose Urine UA 3+ (Negative); Ketones Urine Negative (Negative); Leukocyte Esterase Ur Negative (Negative); Nitrate Urine Negative (Negative); Protein Urine Negative (Negative); Specific Grav Ur 1.015 (1.010-1.020); Urobilinogen Urine 0.2 mg/dL (0.2-1.0)
[2023-04-23 13:15] LABS: Add Urine Microscopic? YES; Bacteria Urine Rare /hpf; Budding Yeast Urine Present /hpf; RBC Urine None seen /hpf (0-2); WBC Urine None seen /hpf (0-3)
[2023-04-23 13:26] LABS: Amphetamine Screen Urine Negative (Negative); Barbiturate Screen Urine Negative (Negative); Benzodiazepines Screen Urine Negative (Negative); Cannabinoid Screen Urine Negative (Negative); Cocaine Screen Urine Negative (Negative); Methadone Screen Urine Negative (Negative); Opiate Screen Urine Negative (Negative); Phencyclidine Screen Urine Negative (Negative)
== END 2023-04-23 12:53 | disposition home or self-care (01) ==
PROVIDERS: PCP Internal Medicine; Visit Provider Internal Medicine
DX: M79.671 Pain in right foot (principal); L03.90 Cellulitis, unspecified; E11.9 Type 2 diabetes mellitus without complications; R21 Rash and other nonspecific skin eruption
CPT/HCPCS: 80307; 81001

== ENCOUNTER 2023-05-29 19:22 | Outpatient (CLI) | payer OTHER, SELFPAY ==
--- NOTE | 2023-06-13 17:09 | WPDSLEEPSTUD ---
Sleep Study Date of Study: 05/29/23 Ordering Provider: ROGE Lu Interpreting Physician: More Luevano MD Sleep Study Type: CPAP Titration Height: 1.96 m Weight: 170.097 kg Body Mass Index: 44.4 Neck Circumference (inches): 18.75 Ucon: 9 Reason for Sleep Study Hx of BEATRIZ, has been on CPAP, needs new equipment Sleep History Clovis Steel is a [id number] with history of obstructive sleep apnea, type 2 diabetes with peripheral neuropathy, GERD, asthma, hypertension, cardiomyopathy, hx histoplasmosis, hypertension, dyslipidemia, tobacco use. He needs new CPAP equipment, and is having a CPAP titration. He frequently awakens from sleep short of breath. He frequently awakens at night with heartburn, belching or cough. He frequently snores and snores loud enough for others to complain. He constantly has trouble sleeping when he has a cold. He frequently wakes up gasping for breath during the night. He occasionally has breathing problems at night. He occasionally sweats excessively at night. He frequently falls asleep during the day. He occasionally falls asleep involuntarily and occasionally falls asleep while driving. He occasionally notices his heart pounding or beating irregularly during the night. He frequently experiences loss of muscle tone with strong emotion. He frequently feels paralyzed on waking or falling asleep. He frequently experiences vivid dreams upon waking or falling asleep. He occasionally feels afraid of going to sleep. He rarely has nightmares. He frequently recalls his dreams. He frequently has thoughts racing through his mind. He occasionally feels sad or depressed. He occasionally feels anxiety or worry about things. He frequently notices parts of his body jerk. He frequently kicks during the night. He frequently feels crawling or aching feelings in his legs. He constantly feels leg pain at night. He occasionally grinds his teeth during sleep and he occasionally has morning jaw pain. He frequently feels bothered by pain during the day and is frequently awakened by pain during the night. He frequently wakes up feeling stiff in the morning and wakes up feeling sore and achy in the morning. He frequently wakes with pain in his neck, spine, or joints. Normal bedtime is around 10pm, sometimes taking extended periods to fall asleep. He typically gets about 4 hours of sleep per night. His wake up time is around 4am. He typically wakes up around 6 times per night and can be awake for 20 to 30 minutes each. He occasionally watches television before falling asleep. He takes naps in the afternoon or evening. Habits: Current tobacco smoker. Social alcohol use, no recreational substances. [facility] Past Medical History Medical History (Updated 06/13/23 @ 18:01 by More Luevano MD) Congestive heart failure Diabetes mellitus Histoplasma capsulatum infection Hypertension Nicotine addiction Obesity, Class III, BMI 40-49.9 (morbid obesity) Obstructive sleep apnea Surgical History Surgical History H/O hernia repair Family History Family History Father Heart disease Mother Diabetes mellitus Social History Social History Smoking packs per day: 0.5 Smoking cigarettes per day: 10.0 Smoking status: Current some day smoker Alcohol intake: current Drinks per week: 2 Alcohol use details: socially Substance use: never Substance use type: does not use Living arrangements: alone Occupation/Education: retired Gender identity (if verbalized by the patient): Male Sexual Orientation (if Verbalized by the Patient): Straight or Heterosexual Spiritual care concerns: No Medications Home Medications Medication Instructions Recorded Confirmed Type aspirin 81 mg tablet 81 mg PO DAILY 06/02/21 05/22/23 H
[2023-06-13 18:04] VITALS: BMI 44.4
== END 2023-05-30 06:17 | disposition home or self-care (01) ==
PROVIDERS: PCP Internal Medicine; Visit Provider Physician Assistant
DX: G47.61 Periodic limb movement disorder (principal); J45.909 Unspecified asthma, uncomplicated; G47.33 Obstructive sleep apnea (adult) (pediatric)
CPT/HCPCS: 95811

== ENCOUNTER 2023-06-21 07:08 | Outpatient (CLI) | payer OTHER, SELFPAY ==
--- NOTE | 2023-06-21 13:37 | WPDPFTINT ---
PFT Procedure Performed PFT Procedure Performed Spirometry with Pre/Post Bronchodilator Plethysmography (Lung Vol) Diffusing Cap (DLCO) Flow Vol Loop PFT Interpretation This is a pulmonary function test with pre and post-bronchodilator spirometry, plethysmography and diffusing capacity. The test was performed and results interpreted in accordance with the 2019 and 2005 ATS/ERS Task Force guidelines respectively using the Global Lung Function Initiative-2012 reference equations. Patient demonstrated good effort and cooperation. Reproducibility criteria were met. The quality of the pre bronchodilator spirometry maneuver was Grade A and post bronchodilator spirometry maneuver was Grade B. Findings: Spirometry: There is decreased maximal expiratory airflow with a concave expiratory flow tracing. The contour the inspiratory flow tracing is normal. The pre bronchodilator FVC is 4.31 L, 67% predicted. The pre bronchodilator FEV1 is 3.07 L, 61% predicted. The pre bronchodilator FEV1: FVC ratio 71%. The post bronchodilator FVC is 3.99 L, representing a 7% decrease. The post bronchodilator FEV1 is 2.89 L, representing a 6% decrease. The post bronchodilator FEV1: FVC ratio 72%. Plethysmography: The total lung capacity is 6.75 L, 79% predicted. The functional residual capacity is 2.69 L, 60% predicted. The residual volume is 2.13 L, 86% predicted. Diffusion capacity: The diffusing capacity unadjusted for hemoglobin and carboxyhemoglobin is 29.5, 87% predicted. The diffusing capacity adjusted for alveolar volume is 5.01, 122% predicted. Impression: There is a combined obstructive and restrictive ventilatory abnormality. There are no guidelines to assign the severity of obstruction and restriction with a combined abnormality. In my opinion, given the mildly concave expiratory flow tracing and normal FEV1:FVC ratio and mild restrictive abnormality, I would state there is a mild obstructive abnormality and a mild restrictive abnormality resulting in a moderately decreased FEV1. There is no significant improvement after inhaling a single dose of albuterol. The diffusing capacity is normal. There are no prior studies for comparison
== END 2023-06-21 07:09 | disposition home or self-care (01) ==
LOC: ANHPFT 07:08
PROVIDERS: PCP Internal Medicine; Visit Provider Physician Assistant
DX: J45.909 Unspecified asthma, uncomplicated (principal)
CPT/HCPCS: 94060; 94726; 94729

== ENCOUNTER 2023-06-28 13:56 | Outpatient (CLI) | payer OTHER, SELFPAY ==
--- NOTE | ~2023-06-28 | CT_ITS ---
EXAMINATION: CT diagnostic chest wo con DATE: 06/28/2023 14:12 INDICATION: Unspecified asthma TECHNIQUE: Computed tomography (CT) of the chest was performed without intravenous contrast. The dose -length product (DLP) was 1024.59 mGy-cm. Automated exposure control and iterative reconstruction lana hnique were employed. COMPARISON: 12/08/2022 FINDINGS: The lungs are free of focal airspace opacities. There are widespread subpleural reticular a nd groundglass opacities. No pleural effusion or pneumothorax. There is mild emphysema of the lung ap ices. No pathologically enlarged thoracic lymph nodes are identified. The heart size is normal. There is calcified coronary artery atherosclerosis mild bilateral gynecomastia is noted. There is moderate thoracic spondylosis. IMPRESSION: 1. Subpleural reticular and groundglass opacities which could reflect NSIP and/or mild emphysema. Reviewed, dictated and finalized at location A. IMPRESSION: 1. Subpleural reticular and groundglass opacities which could reflect NSIP and/ or mild emphysema.
== END 2023-06-28 13:57 | disposition home or self-care (01) ==
PROVIDERS: PCP Internal Medicine; Visit Provider Physician Assistant
DX: J98.4 Other disorders of lung (principal); J45.909 Unspecified asthma, uncomplicated; R91.8 Other nonspecific abnormal finding of lung field
CPT/HCPCS: 71250

== ENCOUNTER 2023-07-02 15:15 | Outpatient (CLI) | payer OTHER, SELFPAY ==
[2023-07-05 03:50] LABS: ANA Cascade Screen Negative (Negative)
== END 2023-07-02 15:16 | disposition home or self-care (01) ==
LOC: CHSLAB 15:17
PROVIDERS: PCP Internal Medicine; Visit Provider Physician Assistant
DX: J84.9 Interstitial pulmonary disease, unspecified (principal)
CPT/HCPCS: 36415; 86038; 86331; 86430; 86606; 86609

== ENCOUNTER 2023-12-18 14:20 | Outpatient (CLI) | payer OTHER, SELFPAY ==
[2023-12-18 15:32] LABS: Ferritin 57 ng/mL (26-388)
[2023-12-22 11:01] LABS: ANA Cascade Screen Negative (Negative)
== END 2023-12-18 14:21 | disposition home or self-care (01) ==
LOC: CHSLAB 14:22
PROVIDERS: PCP Internal Medicine; Visit Provider Nurse Practitioner Family
DX: G47.61 Periodic limb movement disorder (principal); J84.9 Interstitial pulmonary disease, unspecified
CPT/HCPCS: 36415; 82728; 83516; 86038; 86225; 86235; 86430

== ENCOUNTER 2024-01-09 10:53 | Outpatient (CLI) | payer SELFPAY ==
--- NOTE | ~2024-01-09 | XR_ITS ---
EXAMINATION: XR sinus min 3V INDICATION: Sinusitis TECHNIQUE: Five views of the paranasal sinuses are obtained. COMPARISON: None available FINDINGS: There is normal pneumatization of the paranasal sinuses. No definite sinus opacification is identified. The osseous structures are unremarkable. IMPRESSION: 1. No definite evidence of sinusitis of the sensitivity of radiographs is low. If there is high clini eboni suspicion for sinusitis, consider CT. Reviewed, dictated and finalized at location L. D SLICER MACHINE IMPRESSION: 1. No definite evidence of sinusitis of the sensitivity of radiographs is low. If there is high clinical suspicion for sinusitis, consider CT.
[2024-01-09 11:09] LABS: Basophils Absolute Auto 0.05 K/mm3 (0.00-0.10); Basophils Percent Auto 0.6 % (0.0-1.0); Eosinophils Absolute Auto 0.19 K/mm3 (0.02-0.50); Eosinophils Percent Auto 2.3 % (1.0-6.0); Hematocrit 40.4 % (40.0-54.0); Hemoglobin 13.7 g/dL (14.0-18.0); Immature Granulocyte Percent A 1.2 % (0.0-0.0); Lymphocytes Absolute Auto 2.34 K/mm3 (1.10-4.50); Lymphocytes Percent Auto 28.3 % (18.0-42.0); Mean Corpuscular HGB Conc 33.9 g/dL (32.0-36.0); Mean Corpuscular Hemoglobin 29.4 pg (27.0-31.0); Mean Corpuscular Volume 86.7 fL (78.0-102.0); Mean Platelet Volume 9.3 fl (8.7-11.0); Monocytes Absolute Auto 0.54 K/mm3 (0.10-0.90); Monocytes Percent Auto 6.5 % (2.0-11.0); Neutrophils Percent Auto 61.1 % (50.0-70.0); Platelet Count Result 212 K/mm3 (150-420); Red Blood Count 4.66 M/mm3 (4.70-6.10); Red Cell Distribution Width 12.7 % (11.6-14.4); White Blood Count 8.3 K/mm3 (4.8-10.8)
[2024-01-09 11:24] LABS: Hemoglobin A1C 10.9 % (<5.7)
[2024-01-09 11:43] LABS: Alanine Aminotransferase 29 U/L (16-63); Albumin Level 2.8 g/dL (3.4-5.0); Alkaline Phosphatase 95 U/L (46-116); Anion Gap 12 mmol/L (8-16); Aspartate Amino Transferase 13 U/L (15-37); Bilirubin,Total 0.2 mg/dL (0.00-1.00); Blood Urea Nitrogen 17 mg/dL (7-18); Calcium 8.6 mg/dL (8.5-10.1); Carbon Dioxide 23 mmol/L (21-32); Chloride 99 mmol/L (98-108); Creatine Kinase 103 U/L (39-308); Estimated Glomerular Filt Rate > 60; NT Pro B Type Natriuretic Pept 85 pg/mL (0-125); Osmolality Calculated 299 mOsm/kg (285-295); Potassium 4.4 mmol/L (3.5-5.1); Sodium 134 mmol/L (136-145); Total Protein 7.2 g/dL (6.4-8.2); Troponin I 11.1 ng/L (0.00-60.4)
[2024-01-09 11:44] LABS: Glucose 462 mg/dL (70-99)
[2024-01-09 11:45] LABS: SARS-CoV-2 RNA PCR Negative (Negative)
[2024-01-09 11:47] LABS: Influenza A QL RT-PCR Negative (Negative); Influenza B QL RT-PCR Negative (Negative); RSV RNA, RT-PCR Negative (Negative)
== END 2024-01-09 10:54 | disposition home or self-care (01) ==
PROVIDERS: PCP Internal Medicine; Visit Provider Internal Medicine
DX: R53.83 Other fatigue (principal); J32.9 Chronic sinusitis, unspecified; E11.9 Type 2 diabetes mellitus without complications; I50.9 Heart failure, unspecified
CPT/HCPCS: 36415; 70220; 80053; 82550; 82553; 83036; 83880; 84484; 85025; 87637

== ENCOUNTER 2024-04-26 16:26 | Emergency (ER) | payer MEDICARE, SELFPAY ==
[2024-04-26 16:26] VITALS: BP 156/89; PULSE 122; RESP 17; TEMP 36.3; O2SAT 97
--- NOTE | 2024-04-26 16:39 | ED.GENADULT ---
HPI - General Adult General Chief complaint: Extremity Problem,Nontraumatic Stated complaint: sores on ankles Time Seen by Provider: 04/26/24 16:38 Source: patient Mode of arrival: ambulatory Limitations: no limitations History of Present Illness HPI narrative: 49-year-old poorly-controlled diabetic male with history of carpal tunnel 10 years ago that was mild. Comes in complaining of left long finger pain and wrist radiating up to his elbow. He says this is the same pain And discomfort that he has had with his carpal tunnel. it has gotten worse. He also has 2 sores 1 on each ankle has been there for months. Both of them hurt a little bit more than usual. He has appointment tomorrow with his primary care physician Dr. Mays to discuss these problems but his mother convinced him to come into the emergency room. He says the left long finger has been worse over the last 2-3 weeks. Complains paresthesias of the hand and wrist. Denies any fever cough runny nose sore throat other lumps or bumps or rashes or problems eating or drinking voiding or stooling walking talking or hearing. This morning his fasting blood sugar was 300 which he says is good for him he has been seeing the optometrist owner every month last saw him 3 weeks ago. If his sugars dropped down to 198 he is feels ill. [employer] says he is doing good and is slowly improve his diet. He says he occasionally gets a little blurred vision when his sugar is a little bit higher. He has no problems seeing right now. Denies any other complaints. past medical history: Has a few months ago he is on disability for congestive heart failure and diabetes poor control Related Data Home Medications Medication Instructions Recorded Confirmed aspirin 81 mg tablet 81 mg PO DAILY 06/02/21 03/27/24 multivitamin with minerals-folic tablet PO DAILY 06/20/23 03/27/24 acid 400 mcg-lycopene 370 mcg tablet (One-A-Day Men's 50 Plus) Allergies Allergy/AdvReac Type Severity Reaction Status Date / Time amlodipine Allergy Unknown Verified 04/26/24 16:30 tramadol Allergy Unknown Verified 04/26/24 16:30 Review of Systems Review of Systems: All systems reviewed & are unremarkable except as noted in HPI and below [facility] Past Medical History Medical History Albuminuria Arthritis Asthma Bipolar 1 disorder Carpal tunnel syndrome Cellulitis of foot Congestive heart failure Cornea transplant recipient Hammer toe Histoplasma capsulatum infection Hyperglycemia due to type 2 diabetes mellitus Hypertension Neuropathy Nicotine addiction Obesity, Class III, BMI 40-49.9 (morbid obesity) Obstructive sleep apnea Plantar fasciitis PLMD (periodic limb movement disorder) Type 2 diabetes mellitus with hyperglycemia Surgical History Surgical History H/O hernia repair x2 History of eye surgery cornea transplant Family History Family History Father Heart disease Asthma as a child Hypertension Mother Diabetes mellitus Asthma Colon polyp Depression Bipolar 1 disorder Hypertension Sibling Acute myocardial infarction Asthma Bipolar 1 disorder Diabetes mellitus Hypertension Heart disease brother Other Breast cancer great aunt Heart disease uncle Grandparent Cerebrovascular accident Bipolar 1 disorder Diabetes mellitus Heart disease Hypertension Social History Social History Smoking packs per day: 1 Smoking cigarettes per day: 20.0 Years smoked: 35 Smoking pack-years: 35.00 Smoking status: Current every day smoker Tobacco type: cigarettes Alcohol intake: current Alcohol use details: socially Substance use: former Substance use type: marijuana and crack/cocaine Lack of T
[2024-04-26] MEDS: AMOXICILLIN/CLAVULANATE K 875-125 MG TAB 1 TABLET PO (16:53)
[2024-04-26 17:00] VITALS: BP 137/82; PULSE 100; RESP 12; TEMP 36.3; O2SAT 97
== END 2024-04-26 17:00 | disposition home or self-care (01) ==
PROVIDERS: Emergency Provider Emergency Medicine
DX: G56.02 Carpal tunnel syndrome, left upper limb (principal); E08.621 Diabetes mellitus due to underlying condition with foot ulcer; I11.0 Hypertensive heart disease with heart failure; I50.9 Heart failure, unspecified; F17.210 Nicotine dependence, cigarettes, uncomplicated
CPT/HCPCS: 99283; A9270

== ENCOUNTER 2024-05-28 13:00 | Outpatient (RCR) | payer MEDICARE, MEDICAID, SELFPAY | END 2024-06-01 09:14 | disposition home or self-care (01) | LOC: ANHDMC 13:00 | PROVIDERS: PCP Internal Medicine; Visit Provider Internal Medicine | DX: E11.9 Type 2 diabetes mellitus without complications (principal); Z71.89 Other specified counseling | CPT/HCPCS: G0108 ==

== ENCOUNTER 2024-05-28 15:00 | Outpatient (CLI) | payer MEDICARE, SELFPAY ==
--- NOTE | 2024-05-28 15:05 | ECHO_ITS ---
Patient Info Name: Clovis Steel Age: 49 years : 1975 Gender: Male Ht: 77 in Wt: 385 lbs BSA: 3.16 m2 HR: 117 bpm BP: 144 / 102 mmHg Technical Quality: Fair Exam Date: 05/28/2024 2:55 PM Exam Location: [facility] Patient Status: Outpatient Admit Date: 05/28/2024 Staff Ordering Physician: Cornelius Casas DO Blueprint Developer: Moi Clinton RDCS Attending Provider: Cornelius Casas DO Referring Physician: Augusto PANG; Exam Type: CA echo doppler color flow Study Info Indications I50.9 - Heart failure, unspecified Complete two-dimensional, color flow and Doppler transthoracic echocardiogram is performed. Summary 1. Complete two-dimensional, color flow and Doppler transthoracic echocardiogram is performed. 2. Left ventricular chamber dimension is mildly enlarged. 3. Left ventricular systolic function is preserved, estimated at 50-55%. 4. There is mild concentric increased left ventricular wall thickness. 5. The left ventricular diastolic function is normal. 6. E/e' 9 is minimally elevated. 7. Left atrial chamber dimension is mildly enlarged. 8. The mitral valve has mildly calcified annulus. 9. No pulmonary hypertension, estimated pulmonary arterial systolic pressure is 14 mmHg. Left Ventricle Left ventricular systolic function is preserved, estimated at 50-55%. E/e' 9 is minimally elevated. Left ventricular chamber dimension is mildly enlarged. There is mild concentric increased left ventricular wall thickness. The left ventricular diastolic function is normal. Right Ventricle Right ventricular systolic function is normal and with normal TAPSE 2.0 cm. Right ventricular chamber dimension is normal. Left Atria Left atrial chamber dimension is mildly enlarged. Right Atria Right atrial chamber dimension is normal. Aortic Valve The aortic valve is trileaflet. There is no aortic valve stenosis. There is no aortic valve regurgitation. Pulmonic Valve There is no pulmonic regurgitation. Mitral Valve The mitral valve has mildly calcified annulus. There is no mitral valve stenosis. There is no mitral valve regurgitation. Tricuspid Valve There is no tricuspid valve regurgitation. No pulmonary hypertension, estimated pulmonary arterial systolic pressure is 14 mmHg. Pericardium/Pleural There is no pericardial effusion. Inferior Vena Cava Normal inferior vena cava with >50% collapse upon inspiration consistent with normal right atrial pressure, 5 mmHg. Aorta The aortic root size at the sinus of Valsalva is normal. Left Ventricular Outflow Tract Name Value Normal LVOT 2D LVOT Diameter 2.0 cm LVOT Doppler LVOT Peak Velocity 126 cm/s LVOT Peak Gradient 6 mmHg LVOT Mean Gradient 4 mmHg LVOT VTI 22 cm LVOT VTI/AV VTI Ratio 1.0 LVOT Stroke Volume 71 ml Pulmonic Valve Name Value Normal PV Doppler
== END 2024-05-28 15:01 | disposition home or self-care (01) ==
PROVIDERS: PCP Internal Medicine; Visit Provider Internal Medicine Cardiovascular Disease
DX: I50.9 Heart failure, unspecified (principal); I51.7 Cardiomegaly
CPT/HCPCS: 93306

== ENCOUNTER 2024-07-07 11:06 | Outpatient (CLI) | payer MEDICARE, SELFPAY ==
--- NOTE | ~2024-07-07 | CT_ITS ---
EXAMINATION:CT diagnostic chest wo con DATE: 07/07/2024 11:30 INDICATION: Interstitial pulmonary disease, unspecified. TECHNIQUE: Computed tomography (CT) of the chest was performed without intravenous contrast. Automate d exposure control and iterative reconstruction technique were employed. The dose-length product (DLP ) was 1005.05 mGy-cm. COMPARISON: Chest CT 06/28/2023 FINDINGS: There is mild emphysema. There is widespread peripheral septal thickening lungs. No bronchi ectasis. No pleural effusion. The heart size is normal. There are coronary artery calcifications. No pericardial effusion. There is mild bilateral gynecomastia. There is mild thoracic spondylosis. There is mild chronic anterior wedging of multiple vertebral bodies. IMPRESSION: 1. Stable diffuse lung disease, likely a combination of mild emphysema and mild chronic interstitial disease in a pattern of nonspecific interstitial pneumonia (NSIP) versus usual interstitial pneumonia (UIP). Reviewed, dictated and finalized at location A. IMPRESSION: 1. Stable diffuse lung disease, likely a combination of mild emphysema and mild chronic interstitial disease in a pattern of nonspecific interstitial pneumoni a (NSIP) versus usual interstitial pneumonia (UIP).
[2024-07-07 11:30] VITALS: PULSE 103; O2SAT 97
[2024-07-07 11:37] VITALS: PULSE 112; O2SAT 97
--- NOTE | 2024-07-07 11:44 | HOMEO2EVAL ---
[place] [facility] [place]: Home Oxygen (O2) Evaluation Start: 07/07/24 11:41 Freq: Status: Active Protocol: RPE Activity Type Activity Date Activity User E-sign Co-sign Detail Recorded Client Recorded Date Recorded By Document 07/07/24 11:30 [email or web address] 07/07/24 11:44 SJB Document 07/07/24 11:37 SJB [email or web address] 07/07/24 11:44 SJB 07/07/24 07/07/24 11:30 11:37 Home O2 Evaluation [Oxygen] -Test Phase Resting Exercise -Oxygen Delivery Room Air Room Air [Pulse Oximetry] -Pulse Oximetry (90-100 %) 97 97 [Pulse Rate] -Pulse Rate (60-100 beats/min) 103 H 112 H [Evaluation] -Activity Tolerance Good -Rating of Perceived Dyspnea (PD) +2 Mild, Some Difficulty, Noticeable to the Observer -Rate of Perceived Exertion (PE) 12 Query Text:Click the Protocol Button to View the RPE Scale [Exercise] -Ambulation Distance (feet) 1,135 -Ambulation Distance (meters) 345.93 [Comments] -Home Oxygen Evaluation Comments Will begin walk Pt walked on r/a. approx 1135 ft on room air, talking throughout. Sp02s remained at 97% and above. HR ranged from 89- 112. Tolerated very well. [Charges] -Evaluation Charges O2 Evaluation Charge
--- NOTE | 2024-07-10 14:44 | P.PCNPFT_ITS ---
PFT Procedure Performed PFT Procedure Performed Spirometry with Pre/Post Bronchodilator Plethysmography (Lung Vol) Diffusing Cap (DLCO) Flow Vol Loop PFT Interpretation DOS: 07/07/2024 REQUESTING: Tj Wallace APRN REASON FOR TESTING: Asthma PULMONARY FUNCTION TESTS The tech noted that the patient could not exhale completely due to coughing on the pre and post bronchodilator spirometry efforts, although he had excellent effort. Spirometry: The pre-bronchodilator FEV1 is 3.27 L, 77%. The pre-bronchodilator FVC is 4.79 L, 91%. The FEV1/FVC ratio is 68%. After bronchodilator, the FEV1 is 3.08 L, 73%, -5% change. The post-bronchodilator FVC is 4.20 L, 80%, -12% change. The FEV1/FVC ratio is 73%. The HRL47-50% is 1.75 L, 39% before bronchodilator, and increases to 2.19 L, 49%, a 26% increase after bronchodilator.. Lung volumes: The total lung capacity is 7.28 L, 94%, normal. The FRC is 4.30 L, 142%, increased. The residual volume is 2.50 L, 100%. The RV/TLC is 34%, normal. Airway resistance is increased. Diffusion: DLCO is 31.4, 81% predicted, normal. The DLCO/VA is 4.60, 117%, nor mal. Flow volume loop: The flow volume loop shows mild concavity of the expiratory loop. IMPRESSION: This study shows a mild obstructive ventilatory impairment which is more pronounced in the small airways, normal lung volumes, and normal diffusion. There was no improvement in the FEV1 or FVC with bronchodilator. There was a robust improvement in the small airways flows after albuterol. Compared to a prior study 06/21/2023, spirometry is similar with small improvement in the FEV1, and there is no longer a restrictive process with a normal TLC now. Diffusion remains normal. Clinical correlation is recommended. More Luevano MD
--- NOTE | 2024-07-10 15:11 | WPDSIXMINUTE ---
Six Minute Walk Procedure Procedure Performed Pulmonary Stress Test (6 min walk) Six Minute Walk Six Minute Walk: DATE OF SERVICE: 07/07/2024 REQUESTING: Tj Wallace APRN REASON FOR TESTING: asthma SIX MINUTE WALK This test was conducted per ATS guidelines. The initial saturation was 97%, and initial heart rate was 103 bpm. The patient walked without stopping, completing 345.9 m/1135 feet. The saturation at the end of testing was 99%, and the heart rate was 112 bpm. IMPRESSION: This is a normal study. The patient did not require supplemental oxygen with exertion. More Luevano MD
== END 2024-07-07 11:07 | disposition home or self-care (01) ==
PROVIDERS: PCP Internal Medicine; Visit Provider Nurse Practitioner Family
DX: J84.9 Interstitial pulmonary disease, unspecified (principal); J45.909 Unspecified asthma, uncomplicated; Z72.0 Tobacco use; J98.4 Other disorders of lung
CPT/HCPCS: 71250; 94060; 94618; 94726; 94729

== ENCOUNTER 2024-08-21 08:45 | Outpatient (CLI) | payer MEDICARE, SELFPAY ==
[2024-08-21 09:09] LABS: Hematocrit 43.1 % (40.0-54.0); Hemoglobin 15.3 g/dL (14.0-18.0); Mean Corpuscular HGB Conc 35.5 g/dL (32-36); Mean Corpuscular Hemoglobin 30.7 pg (27.0-31.0); Mean Corpuscular Volume 86.4 fL (78.0-102.0); Mean Platelet Volume 9.4 fl (8.7-11.0); Platelet Count Result 258 K/mm3 (150-420); Red Blood Count 4.99 M/mm3 (4.70-6.10); Red Cell Distribution Width 12.3 % (11.6-14.4); White Blood Count 10.1 K/mm3 (4.8-10.8)
[2024-08-21 09:46] LABS: Creatinine Urine 180.84 mg/dL (40-278); MALB Creatinine Ratio 11.9 mg/g (0-30); Microalbumin Urine Random 21.7 mg/L
[2024-08-21 10:11] LABS: Alanine Aminotransferase 26 U/L (16-63); Albumin Level 3.1 g/dL (3.4-5.0); Alkaline Phosphatase 95 U/L (46-116); Anion Gap 10 mmol/L (4-12); Aspartate Amino Transferase 16 U/L (15-37); Bilirubin,Total 0.4 mg/dL (0.00-1.00); Blood Urea Nitrogen 9 mg/dL (7-18); Calcium 8.9 mg/dL (8.5-10.1); Carbon Dioxide 26 mmol/L (21-32); Chloride 100 mmol/L (98-108); Cholesterol 205 mg/dL (0-200); Estimated Glomerular Filt Rate > 60; Free T4 Free Thyroxine 0.99 ng/dL (0.76-1.46); Glucose 215 mg/dL (70-99); HDL Direct 31 mg/dL (40-60); LDL Cholesterol Calculated 128 mg/dL (<130); Osmolality Calculated 286 mOsm/kg (285-295); Potassium 4.1 mmol/L (3.5-5.1); Sodium 136 mmol/L (136-145); Thyroid Stimulating Hormone 1.52 uIU/mL (0.36-3.74); Total Protein 7.1 g/dL (6.4-8.2); Triglycerides 229 mg/dL (0-150)
== END 2024-08-21 08:46 | disposition home or self-care (01) ==
PROVIDERS: PCP Internal Medicine; Visit Provider Internal Medicine
DX: R93.89 Abnormal findings on diagnostic imaging of other specified body structures (principal); R80.9 Proteinuria, unspecified; L97.509 Non-pressure chronic ulcer of other part of unspecified foot with unspecified severity; I50.9 Heart failure, unspecified; E78.5 Hyperlipidemia, unspecified; E08.621 Diabetes mellitus due to underlying condition with foot ulcer; Z72.0 Tobacco use
CPT/HCPCS: 36415; 80053; 80061; 82043; 84439; 84443; 85027

== ENCOUNTER 2024-08-31 13:00 | Outpatient (RCR) | payer MEDICARE, SELFPAY | END 2024-09-21 13:58 | disposition home or self-care (01) | LOC: ANHDMC 13:00 | PROVIDERS: PCP Internal Medicine; Visit Provider Internal Medicine | DX: E11.65 Type 2 diabetes mellitus with hyperglycemia (principal); Z71.89 Other specified counseling; I50.9 Heart failure, unspecified | CPT/HCPCS: G0108 ==

== ENCOUNTER 2024-09-12 12:02 | Emergency (ER) | payer MEDICARE, SELFPAY ==
[2024-09-12 12:06] VITALS: BP 142/103; PULSE 124; RESP 20; TEMP 36.6; O2SAT 96
--- NOTE | 2024-09-12 12:18 | ED_ITS ---
HPI - Skin/Abscess/Foreign Bdy General Chief complaint: Skin/Abscess/Foreign Body Stated complaint: sore on left heel Source: patient Mode of arrival: ambulatory Limitations: no limitations History of Present Illness HPI narrative: this is a 49-year-old diabetic patient with history of peripheral neuropathy presents with some left heel pain with foreign object imbedded into his left heel. Otherwise there is no redness no fever chills no drainage from the left heel site. complaint: foreign body Onset (ago): day(s) Tetanus up to date: yes Location: L foot Severity: moderate Severity scale (1-10): 5 Quality: sharp Pain Consistency: constant Related Data Home Medications Medication Instructions Recorded Confirmed aspirin 81 mg tablet 81 mg PO DAILY 06/02/21 03/27/24 multivitamin with minerals-folic tablet PO DAILY 06/20/23 03/27/24 acid 400 mcg-lycopene 370 mcg tablet (One-A-Day Men's 50 Plus) Allergies Allergy/AdvReac Type Severity Reaction Status Date / Time amlodipine Allergy Unknown Verified 08/20/24 11:26 tramadol Allergy Unknown Verified 08/20/24 11:26 Review of Systems Review of Systems: All systems reviewed & are unremarkable except as noted in HPI and below PMFSH Past Medical History Medical History Albuminuria Arthritis Asthma Bipolar 1 disorder Carpal tunnel syndrome Cellulitis of foot Congestive heart failure Cornea transplant recipient Hammer toe Histoplasma capsulatum infection Hyperglycemia due to type 2 diabetes mellitus Hypertension Neuropathy Nicotine addiction Obesity, Class III, BMI 40-49.9 (morbid obesity) Obstructive sleep apnea Plantar fasciitis PLMD (periodic limb movement disorder) Type 2 diabetes mellitus with hyperglycemia Surgical History Surgical History H/O hernia repair x2 History of eye surgery cornea transplant Family History Family History Father Heart disease Asthma as a child Hypertension Mother Diabetes mellitus Asthma Colon polyp Depression Bipolar 1 disorder Hypertension Sibling Acute myocardial infarction Asthma Bipolar 1 disorder Diabetes mellitus Hypertension Heart disease brother Other Breast cancer great aunt Heart disease uncle Grandparent Cerebrovascular accident Bipolar 1 disorder Diabetes mellitus Heart disease Hypertension Social History Social History Smoking packs per day: 1 Smoking cigarettes per day: 20.0 Years smoked: 35 Smoking pack-years: 35.00 Smoking status: Current every day smoker Tobacco type: cigarettes Alcohol intake: current Alcohol use details: socially Substance use: former Substance use type: marijuana and crack/cocaine Lack of Transportation: No Lack of Food: Sometimes True Current Housing: I Have Housing Concerned About Future Housing: No Difficulty Paying Gas/Electric Bills: YES Difficulty Paying for Meds: No Currently Unemployed: Decline to Answer Education: Decline to Answer Difficulty w/ Childcare or Family Care: No Living arrangements: alone Occupation/Education: retired Gender identity (if verbalized by the patient): Male Sexual Orientation (if Verbalized by the Patient): Straight or Heterosexual Spiritual care concerns: No Exam Const: General: healthy appearing and no acute distress Nutritional Appearance: well nourished and obese Orientation/consciousness: patient oriented x3 Limitations: no limitations Resp: Effort & Inspection: normal respiratory effort Auscultation: clear to auscultation bilaterally Cardio: Rate: regular rate Rhythm: regular rhythm Skin: Other: foreign object imbedded into his left heel with no surrounding erythema no drainage no warmth, it is tender to touch. Course Course Emergency Course: Forceps used to dislodge a piece of plastic that was imbedded into his left heel patient tolerated procedure well minimal blood loss. Patient up-to-date with his tetanus, Will administer a dose of clindamycin apply triple antibiotic ointment, and 60mg IM Toradol for pain relief. Vital Signs Vital signs: Vital Signs Temperature 36.6 C 09/12/24 12:06 Pulse Rate 124 H 09/12/24 12:06 Respiratory Rate 20 09/12/24 12:06 Blood Pressure 142/103 H 09/12/24 12:06 Pulse Oximetry 96 09/12/24 12:06 Oxygen Delivery Room Air 09/12/24 12:06 Temperature 36.6 C 09/12/24 12:06 Pulse Rate 124 H 09/12/24 12:06 Respiratory Rate 20 09/12/24 12:06 Blood Pressure 142/103 H 09/12/24 12:06 Pulse Oximetry 96 09/12/24 12:06 Oxygen Delivery Room Air 09/12/24 12:06 Procedures Foreign Body Removal Foreign Body #1: Foreign Body Removal Date: 09/12/24 Foreign Body Removal Time: 12:22 Site: left and other (heel) Description of foreign body: other ( plastic) Technique: removal with forceps Confirmed by:: direct visualization Complications: none Critical Care Time Critical Care Time Critical Care Time: No Discharge Plan Discharge Clinical Impression: Foreign body (FB) in soft tissue Patient Disposition: Home, Self-Care Condition: Stable Instructions: Antibiotic Form, Soft Tissue Foreign Body (ED) Additional Instructions: advised to take medication as prescribed and follow up with primary within 1 week further evaluation and treatment. Prescriptions: New clindamycin HCl 300 mg capsule 300 mg PO Q6H 10 Days Qty: 40 0RF mupirocin 2 % ointment 1 applic topical TID 7 Days Qty: 15 0RF naproxen 500 mg tablet 500 mg PO BID PRN (Reason: pain) Qty: 14 0RF No Action aspirin 81 mg Tablet 81 mg PO DAILY carvedilol 25 mg tablet See Rx Instructions .ROUTE .COMPLEX Qty: 180 2RF Dose Instruction: TAKE 1 TABLET BY MOUTH EVERY 12 HOURS WITH MEAL OR FOOD Rx Instructions: TAKE 1 TABLET BY MOUTH EVERY 12 HOURS WITH MEAL OR FOOD omeprazole 20 mg capsule,delayed release(DR/EC) 20 mg PO BID Qty: 20 0RF Spiriva Respimat 1.25 mcg/actuation mist 2 puff inhalation Q24H Qty: 4 5RF Entresto 49-51 mg tablet 1 tablet PO BID Qty: 180 2RF spironolactone [Aldactone] 25 mg tablet 25 mg PO DAILY Qty: 90 2RF furosemide [Lasix] 40 mg tablet 40 mg PO DAILY Qty: 90 2RF Ozempic 2 mg/dose (8 mg/3 mL) pen injector 2 mg subcut WEEKLY Qty: 9 0RF (DME) FreeStyle Sal 3 [place] Misc See Rx Instructions .Route Qty: 1 0RF Rx Instructions: As directed (DME) FreeStyle Sal 3 Sensor Device See Rx Instructions .Route Qty: 6 3RF Rx Instructions: every 14 days insulin glargine [Lantus Solostar U-100 Insulin] 100 unit/mL (3 mL) insulin pen 64 unit subcut BID Qty: 120 0RF Rx Instructions: 64 units twice daily One-A-Day Men's 50 Plus 400-370 mcg tablet PO DAILY montelukast 10 mg tablet 10 mg PO QHS Qty: 30 11RF budesonide-formoterol [Symbicort] 160-4.5 mcg/actuation HFA aerosol inhaler 2 puff inhalation Q12H Qty: 10.2 5RF Rx Instructions: rinse and spit glucose 4 gram tablet,chewable 16 g PO Q15M PRN (Reason: hypoglycemia) Qty: 360 0RF Rx Instructions: until symptoms of low blood sugar are controlled Gvoke HypoPen 2-Pack 1 mg/0.2 mL auto-injector 1 mg subcut ONCE Qty: 0.4 0RF Rx Instructions: as a single dose; may repeat once after 15 minutes if no response ferrous sulfate 325 mg (65 mg iron) tablet See Rx Instructions .ROUTE .COMPLEX Qty: 90 1RF Dose Instruction: TAKE 1 TABLET BY MOUTH EVERY DAY Rx Instructions: TAKE 1 TABLET BY MOUTH EVERY DAY (DME) OneTouch Ultra Test Strip See Rx Instructions .ROUTE .MEDSUPPLY Qty: 450 12RF Rx Instructions: 4 times day insulin aspart U-100 [Novolog FlexPen U-100 Insulin] 100 unit/mL (3 mL) insulin pen 26 unit subcut TIDWMEAL MDD 110 Qty: 75 1RF Rx Instructions: 26 units before meals plus sliding scale (DME) blood-glucose meter [Accu-Chek Guide Glucose Meter] Misc See Rx Instructions .Route Qty: 1 0RF Rx Instructions: As directed to check BS (DME) Accu-Chek Guide test strips Strip See Rx Instructions .Route Qty: 200 0RF Rx Instructions: check BS 4 times daily rosuvastatin 40 mg tablet 40 mg PO DAILY Qty: 90 2RF Follow-up/Referrals: Jean Paul Mays MD [Primary Care Provider] - Time of Disposition: 12:27
[2024-09-12] MEDS: KETOROLAC (*BKC) 60 MG/2 ML VIAL IM (12:25)
[2024-09-12] MEDS: CLINDAMYCIN HCL 150 MG CAP 600 MG PO (12:25)
[2024-09-12] MEDS: NEOMYCIN/POLYMYXIN/BACITRACIN OINTMENT PACKET 1 PACKET TOPICAL (12:26)
== END 2024-09-12 12:50 | disposition home or self-care (01) ==
LOC: CHSED 12:25
PROVIDERS: Emergency Provider Emergency Medicine; PCP Internal Medicine
DX: S91.342A Puncture wound with foreign body, left foot, initial encounter (principal); I11.0 Hypertensive heart disease with heart failure; I50.9 Heart failure, unspecified; E11.9 Type 2 diabetes mellitus without complications; F17.210 Nicotine dependence, cigarettes, uncomplicated; W45.8XXA Other foreign body or object entering through skin, initial encounter
CPT/HCPCS: 10120; 99283; A9270; J1885

== ENCOUNTER 2024-09-21 11:41 | Observation (INO) | payer MEDICARE, SELFPAY ==
--- NOTE | ~2024-09-21 | CT_ITS ---
Procedure: CT foot LT w con Ordering provider: Betty Crump MD History: . Possible foreign body LT HEEL,STEPPED ON/REMOVED X1WK AGO,SW . Comparison: None. Technique: Thin slice axial CT of the No IV contrast was given. Sagittal and coronal reformatted imag es were also obtained and reviewed. Findings: BONES: No definite fractures seen. Small bony fragment is seen between the talus and navicular bone m ost likely nonossified apophysis. Seminal small bony fragment is seen near to the tip of the fibula. Calcaneal spur is noted. Ossification of the insertion of the tendo Achilles. Bone island seen in the calcaneus JOINT SPACES: Osteoarthritic changes of the talonavicular joint, sob talonavicular joint and first me tatarsophalangeal joint. SOFT TISSUES: Lucency is seen in the subcutaneous tissues below the calcaneus suggestive of a alignme nt no definite radiopaque foreign bodies seen in the area. Ossification of the insertion of the tendo Achilles. IMPRESSION: Injury seen in the plantar aspect of the foot opposite the posterior calcaneus with no definite forei gn bodies. No definite fractures seen. Polyarticular osteoarthritic changes. Reviewed, dictated and finalized at location A. [employer] IMPRESSION: Injury seen in the plantar aspect of the foot opposite the posterior calcaneus with no definite foreign bodies. No definite fractures seen. Polyarticular osteoarthritic changes.
--- NOTE | ~2024-09-21 | US_ITS ---
EXAMINATION: US venous doppler [facility] DATE: 09/22/2024 07:56 INDICATION: Left lower limb swelling. TECHNIQUE: Grayscale ultrasound images without and with compression and Doppler ultrasound images of the left lower extremity veins were obtained. COMPARISON: None. FINDINGS: The visualized portions of left common femoral vein, profunda (deep) femoral vein, femoral vein, popl iteal vein, peroneal veins, posterior tibial veins, and greater saphenous vein outflow are patent. IMPRESSION: 1. No deep venous thrombosis. Reviewed, dictated and finalized at location A. CTOR OF COMMUNICATIONS
--- NOTE | ~2024-09-21 | XR_ITS ---
EXAMINATION: XR chest 1V portable DATE: 09/21/2024 12:35 INDICATION: Congestive heart failure. TECHNIQUE: A single frontal view of the chest was obtained. COMPARISON: Chest single view 12/08/2022 FINDINGS: There is no pneumonia, pleural effusion, or pneumothorax. The heart size is normal. IMPRESSION: 1. No acute cardiopulmonary disease. Reviewed, dictated and finalized at location A. [employer] [facility]
--- NOTE | ~2024-09-21 | CT_ITS ---
EXAMINATION: CTA chest PE protocol DATE: 09/22/2024 10:45 INDICATION: Tachycardia. Elevated d-dimer. Lower limb pain. TECHNIQUE: Computed tomography angiography (CTA) of the chest was performed with 100 mL Omnipaque-350 intravenous contrast timed to evaluate the pulmonary arteries. Coronal maximum intensity projection 3D-reconstructions were created by the technologist. Automated exposure control and iterative reconst ruction technique were employed. The dose-length product was 1001.58 mGy-cm. COMPARISON: Chest CT 07/07/2024 FINDINGS: There is mild emphysema. There is peripheral septal thickening in the lungs. No bronchiecta sis. There are trace pleural effusions. The heart size is normal. There are coronary artery calcifica tions. No pericardial effusion. There is no pulmonary embolus. There is mild bilateral hilar lymphade nopathy, likely reactive. There is diffuse hepatic steatosis. There is moderate thoracic spondylosis. There is mild chronic anterior wedging of multiple vertebral bodies. IMPRESSION: 1. No pulmonary embolus. Sensitivity is mildly decreased by motion artifact. 2. Stable diffuse lung disease, likely a combination of mild emphysema and mild chronic interstitial lung disease in a pattern of nonspecific interstitial pneumonia (NSIP) versus usual interstitial pneu monia (UIP). 3. Diffuse hepatic steatosis. Reviewed, dictated and finalized at location A. [employer] LEGAL SECRETARY IMPRESSION: 1. No pulmonary embolus. Sensitivity is mildly decreased by motion artifact. 2. Stable diffuse lung disease, likely a combination of mild emphysema and mild chronic interstitial lung disease in a pattern of nonspecific interstitial pne umonia (NSIP) versus usual interstitial pneumonia (UIP). 3. Diffuse hepatic steatosis.
--- NOTE | ~2024-09-21 | XR_ITS ---
EXAMINATION: XR foot LT min 3V DATE: 09/21/2024 12:35 INDICATION: Left leg swelling. Foreign body. TECHNIQUE: 4 views of left foot were obtained. COMPARISON: None. FINDINGS: Alignment is normal. No fracture. There is mild osteoarthritis of first metatarsophalangeal joint and some of the midfoot joints. There is an enthesophyte at plantar aspect of calcaneal tubero sity. There is a punctate density in the tip of the great toe. IMPRESSION: 1. Mild polyarticular osteoarthritis. 2. Punctate density in the tip of the great toe, which may be a calcification or radiopaque foreign b shanel. Reviewed, dictated and finalized at location A. CLINICIAN IMPRESSION: 1. Mild polyarticular osteoarthritis. 2. Punctate density in the tip of the great toe, which may be a calcification o r radiopaque foreign body.
[2024-09-21 11:43] VITALS: BP 156/99; PULSE 107; RESP 22; TEMP 36.6; O2SAT 97
--- NOTE | 2024-09-21 12:12 | ED_ITS ---
HPI - Extremity Injury (Lower) General Chief Complaint: Extremity Injury, Lower Stated Complaint: left foot pain Time Seen by Provider: 09/21/24 12:11 Source: patient Mode of arrival: ambulatory Limitations: no limitations History of Present Illness HPI Narrative: patient came to the ED by private car complaining of left foot and ankle is swollen over the last few days. Patient is telling me that he had a piece of plastic pulled out of his left foot and was discharged on clindamycin, Bactroban and naproxen. Patient noticed that his left ankle and foot little bit swollen, he denies any fever, chills, nausea, vomiting, pain. History of diabetes with peripheral neuropathy. Related Data Home Medications Medication Instructions Recorded Confirmed aspirin 81 mg tablet 81 mg PO DAILY 06/02/21 03/27/24 multivitamin with minerals-folic tablet PO DAILY 06/20/23 03/27/24 acid 400 mcg-lycopene 370 mcg tablet (One-A-Day Men's 50 Plus) Allergies Allergy/AdvReac Type Severity Reaction Status Date / Time amlodipine Allergy Unknown Verified 08/20/24 11:26 tramadol Allergy Unknown Verified 08/20/24 11:26 [facility] Past Medical History Medical History Albuminuria Arthritis Asthma Bipolar 1 disorder Carpal tunnel syndrome Cellulitis of foot Congestive heart failure Cornea transplant recipient Hammer toe Histoplasma capsulatum infection Hyperglycemia due to type 2 diabetes mellitus Hypertension Neuropathy Nicotine addiction Obesity, Class III, BMI 40-49.9 (morbid obesity) Obstructive sleep apnea Plantar fasciitis PLMD (periodic limb movement disorder) Type 2 diabetes mellitus with hyperglycemia Surgical History Surgical History H/O hernia repair x2 History of eye surgery cornea transplant Family History Family History Father Heart disease Asthma as a child Hypertension Mother Diabetes mellitus Asthma Colon polyp Depression Bipolar 1 disorder Hypertension Sibling Acute myocardial infarction Asthma Bipolar 1 disorder Diabetes mellitus Hypertension Heart disease brother Other Breast cancer great aunt Heart disease uncle Grandparent Cerebrovascular accident Bipolar 1 disorder Diabetes mellitus Heart disease Hypertension Social History Social History Smoking packs per day: 1 Smoking cigarettes per day: 20.0 Years smoked: 35 Smoking pack-years: 35.00 Smoking status: Current every day smoker Tobacco type: cigarettes Alcohol intake: current Alcohol use details: socially Substance use: former Substance use type: marijuana and crack/cocaine Lack of Transportation: No Lack of Food: Sometimes True Current Housing: I Have Housing Concerned About Future Housing: No Difficulty Paying Gas/Electric Bills: YES Difficulty Paying for Meds: No Currently Unemployed: Decline to Answer Education: Decline to Answer Difficulty w/ Childcare or Family Care: No Living arrangements: alone Occupation/Education: retired Gender identity (if verbalized by the patient): Male Sexual Orientation (if Verbalized by the Patient): Straight or Heterosexual Spiritual care concerns: No Exam Narrative: General appearance: Well-developed, well-nourished Skin: Normal color Head: Normocephalic, nontraumatic Eyes: Clear conjunctiva ENT: Oropharynx normal, ears normal, nose normal Neck: Supple, nontender Chest and respiratory: Airway patent, no respiratory distress, no accessory muscle use Heart: Regular rate/rhythm Abdomen: Soft, nontender, no organomegaly, quiet bowel sounds Vascular: Normal peripheral pulses, normal capillary refill. Musculoskeletal: Normal range of motion, nontender back , left foot and ankle exam showed 2+ edema, no tenderness, no erythema, no discharge, 1 cm wound at the bottom of left heel, without any discharge or surrounding erythema. Neurologic: Alert and oriented ?3, CORE INSPECTOR is normal as tested, no gross motor deficit Course Vital Signs Vital signs: Vital Signs Temperature 36.6 C 09/21/24 11:43 Pulse Rate 107 H 09/21/24 11:43 Respiratory Rate 22 H 09/21/24 11:43 Blood Pressure 156/99 H 09/21/24 11:43 Pulse Oximetry 97 09/21/24 11:43 Oxygen Delivery Room Air 09/21/24 11:43 Temperature 36.6 C 09/21/24 11:43 Pulse Rate 107 H 09/21/24 11:43 Respiratory Rate 22 H 09/21/24 11:43 Blood Pressure 156/99 H 09/21/24 11:43 Pulse Oximetry 97 09/21/24 11:43 Oxygen Delivery Room Air 09/21/24 11:43 MDM - Extremity Injury (Lower) MDM Narrative Medical decision making narrative: Patient presents with swelling of the left ankle and foot after puncture wound injury to the left foot 10 days ago. Patient been on clindamycin until now. Vital signs are stable Physical examination showing 1 cm laceration at the left heel area without any sign of infection. Differential diagnosis edema secondary to not keeping his foot elevated, CHF, less likely infection Blood workup today showed WBC of 8.2, D-dimer 0.57, blood glucose of 421, [id number] X-ray left foot showed no acute abnormalities, Chest x-ray showed no acute abnormalities Diagnosis diabetic hyperglycemia high likely secondary to noncompliance with medication or secondary to foot infection Elevated D-dimer less likely secondary to deep vein thrombosis, patient is scheduled for venous Doppler in the morning Left foot infection is a possibility, patient need to follow up with a wood flour miller. Admit to hospitalist for IV antibiotic on hyperglycemia monitor [facility] REQUESTED CT OF THE LEFT FOOT PRIOR TO ADMISSION Differential Diagnosis Differential diagnosis: Likely other ( as above) Medical Records Attestation: I reviewed the patient's medical records. Lab Data Attestation: I reviewed the patient's lab results. 09/21/24 12:40 09/21/24 12:40 Labs: Lab Results 09/21/24 Range/Units 12:40 WBC 8.2 (4.8-10.8) K/mm3 RBC 4.27 L (4.70-6.10) M/mm3 Hgb 13.1 L (14.0-18.0) g/dL Hct 36.9 L (40.0-54.0) % MCV 86.4 (78.0-102.0) fL MCH 30.7 (27.0-31.0) pg MCHC 35.5 (32-36) g/dL RDW 12.5 (11.6-14.4) % Plt Count 238 (150-420) K/mm3 MPV 9.1 (8.7-11.0) fl Immature Gran % (Auto) 1.6 H (0.0-0.0) % Neut % (Auto) 57.8 (50.0-70.0) % Lymph % (Auto) 28.5 (18.0-42.0) % [place] % (Auto) 7.1 (2.0-11.0) % Eos % (Auto) 4.3 (1.0-6.0) % Baso % (Auto) 0.7 (0.0-1.0) % Lymph # (Auto) 2.34 (1.10-4.50) K/mm3 [place] # (Auto) 0.58 (0.10-0.90) K/mm3 Eos # (Auto) 0.35 (0.02-0.50) K/mm3 Baso # (Auto) 0.06 (0.00-0.10) K/mm3 Abs Immat Gran (auto) 0.13 H (0.00-0.00) K/mm3 Absolute Neuts (auto) 4.75 (1.70-7.20) K/mm3 Absolute Nucleated RBC 0.00 (0.00-0.00) K/mm3 Nucleated RBC % 0.0 (0-0.0) % D-Dimer 0.57 H* (0.19-0.50) mg/L Sodium 137 (136-145) mmol/L Potassium 3.7 (3.5-5.1) mmol/L Chloride 103 (98-108) mmol/L Carbon Dioxide 23 (21-32) mmol/L Anion Gap 11 (4-12) mmol/L BUN 5 L (7-18) mg/dL Creatinine 0.85 (0.70-1.30) mg/dL Estim Creat Clear Calc 160 ml/min Estimated GFR > 60 (59 - ) Glucose 421 H* (70-99) mg/dL Calculated Osmolality 299 H (285-295) mOsm/kg Calcium 8.4 L (8.5-10.1) mg/dL Total Bilirubin 0.2 (0.00-1.00) mg/dL AST 20 (15-37) U/L ALT 29 (16-63) U/L Alkaline Phosphatase 101 (46-116) U/L NT-Pro-B Natriuret Pep 271 H (0-125) pg/mL Total Protein 6.5 (6.4-8.2) g/dL Albumin 2.4 L (3.4-5.0) g/dL Imaging Data Radiologist's impression: Impressions Chest X-Ray 09/21/24 12:36 IMPRESSION: 1. No acute cardiopulmonary disease. Foot X-Ray 09/21/24 12:38 IMPRESSION: 1. Mild polyarticular osteoarthritis. 2. Punctate density in the tip of the great toe, which may be a calcification or radiopaque foreign body. ECG Data EKG #1: Attestation: I personally reviewed and interpreted this ECG as follows: ECG completion date: 09/21/24 ECG completion time: 12:28 Interpretation: sinus tachycardia at 102 beats per minute, inferior myocardial infarction of indeterminate age, abnormal EKG Critical Care Time Critical Care Time Critical Care Time: Yes Total Critical Care Time: 30 Discharge Plan Discharge Clinical Impression: Hyperglycemia due to diabetes mellitus, Diabetic foot infection, D-dimer, elevated Patient Disposition: Still a Patient Condition: Stable Prescriptions: No Action aspirin 81 mg Tablet 81 mg PO DAILY carvedilol 25 mg tablet See Rx Instructions .ROUTE .COMPLEX Qty: 180 2RF Dose Instruction: TAKE 1 TABLET BY MOUTH EVERY 12 HOURS WITH MEAL OR FOOD Rx Instructions: TAKE 1 TABLET BY MOUTH EVERY 12 HOURS WITH MEAL OR FOOD omeprazole 20 mg capsule,delayed release(DR/EC) 20 mg PO BID Qty: 20 0RF clindamycin HCl 300 mg capsule 300 mg PO Q6H 10 Days Qty: 40 0RF mupirocin 2 % ointment 1 applic topical TID 7 Days Qty: 15 0RF naproxen 500 mg tablet 500 mg PO BID PRN (Reason: pain) Qty: 14 0RF Spiriva Respimat 1.25 mcg/actuation mist 2 puff inhalation Q24H Qty: 4 5RF Entresto 49-51 mg tablet 1 tablet PO BID Qty: 180 2RF spironolactone [Aldactone] 25 mg tablet 25 mg PO DAILY Qty: 90 2RF furosemide [Lasix] 40 mg tablet 40 mg PO DAILY Qty: 90 2RF Ozempic 2 mg/dose (8 mg/3 mL) pen injector 2 mg subcut WEEKLY Qty: 9 0RF (DME) FreeStyle Sal 3 [place] Misc See Rx Instructions .Route Qty: 1 0RF Rx Instructions: As directed (DME) FreeStyle Sal 3 Sensor Device See Rx Instructions .Route Qty: 6 3RF Rx Instructions: every 14 days insulin glargine [Lantus Solostar U-100 Insulin] 100 unit/mL (3 mL) insulin pen 64 unit subcut BID Qty: 120 0RF Rx Instructions: 64 units twice daily One-A-Day Men's 50 Plus 400-370 mcg tablet PO DAILY montelukast 10 mg tablet 10 mg PO QHS Qty: 30 11RF budesonide-formoterol [Symbicort] 160-4.5 mcg/actuation HFA aerosol inhaler 2 puff inhalation Q12H Qty: 10.2 5RF Rx Instructions: rinse and spit glucose 4 gram tablet,chewable 16 g PO Q15M PRN (Reason: hypoglycemia) Qty: 360 0RF Rx Instructions: until symptoms of low blood sugar are controlled Gvoke HypoPen 2-Pack 1 mg/0.2 mL auto-injector 1 mg subcut ONCE Qty: 0.4 0RF Rx Instructions: as a single dose; may repeat once after 15 minutes if no response ferrous sulfate 325 mg (65 mg iron) tablet See Rx Instructions .ROUTE .COMPLEX Qty: 90 1RF Dose Instruction: TAKE 1 TABLET BY MOUTH EVERY DAY Rx Instructions: TAKE 1 TABLET BY MOUTH EVERY DAY (DME) OneTouch Ultra Test Strip See Rx Instructions .ROUTE .MEDSUPPLY Qty: 450 12RF Rx Instructions: 4 times day insulin aspart U-100 [Novolog FlexPen U-100 Insulin] 100 unit/mL (3 mL) insulin pen 26 unit subcut TIDWMEAL MDD 110 Qty: 75 1RF Rx Instructions: 26 units before meals plus sliding scale (DME) blood-glucose meter [Accu-Chek Guide Glucose Meter] Misc See Rx Instructions .Route Qty: 1 0RF Rx Instructions: As directed to check BS (DME) Accu-Chek Guide test strips Strip See Rx Instructions .Route Qty: 200 0RF Rx Instructions: check BS 4 times daily rosuvastatin 40 mg tablet 40 mg PO DAILY Qty: 90 2RF Follow-up/Referrals: Jean Paul Mays MD [Primary Care Provider] -
--- NOTE | 2024-09-21 12:12 | ECG_ITS ---
Test Date: 2024-09-21 12:23:48 Measurements Intervals [place] Rate: 102 P: 52 MI: 137 QRS: 49 QRSD: 106 T: -9 QT: 352 QTc: 460 Interpretive Statements SINUS TACHYCARDIA INFERIOR INFARCT, AGE INDETERMINATE ABNORMAL ECG No previous ECG available for comparison Electronically Signed On 09-21-2024 13:22:48 PROFESSOR OF ENGLISH by Cornelius Casas D.O.
[2024-09-21 12:46] LABS: Basophils Absolute Auto 0.06 K/mm3 (0.00-0.10); Basophils Percent Auto 0.7 % (0.0-1.0); Eosinophils Absolute Auto 0.35 K/mm3 (0.02-0.50); Eosinophils Percent Auto 4.3 % (1.0-6.0); Hematocrit 36.9 % (40.0-54.0); Hemoglobin 13.1 g/dL (14.0-18.0); Immature Granulocyte Absolute 0.13 K/mm3 (0.00-0.00); Immature Granulocyte Percent A 1.6 % (0.0-0.0); Lymphocytes Absolute Auto 2.34 K/mm3 (1.10-4.50); Lymphocytes Percent Auto 28.5 % (18.0-42.0); Mean Corpuscular HGB Conc 35.5 g/dL (32-36); Mean Corpuscular Hemoglobin 30.7 pg (27.0-31.0); Mean Corpuscular Volume 86.4 fL (78.0-102.0); Mean Platelet Volume 9.1 fl (8.7-11.0); Monocytes Absolute Auto 0.58 K/mm3 (0.10-0.90); Monocytes Percent Auto 7.1 % (2.0-11.0); Neutrophils Absolute Auto 4.75 K/mm3 (1.70-7.20); Neutrophils Percent Auto 57.8 % (50.0-70.0); Platelet Count Result 238 K/mm3 (150-420); Red Blood Count 4.27 M/mm3 (4.70-6.10); Red Cell Distribution Width 12.5 % (11.6-14.4); White Blood Count 8.2 K/mm3 (4.8-10.8)
[2024-09-21 12:59] LABS: D Dimer 0.57 mg/L (0.19-0.50)
[2024-09-21 13:09] LABS: Alanine Aminotransferase 29 U/L (16-63); Albumin Level 2.4 g/dL (3.4-5.0); Alkaline Phosphatase 101 U/L (46-116); Anion Gap 11 mmol/L (4-12); Aspartate Amino Transferase 20 U/L (15-37); Bilirubin,Total 0.2 mg/dL (0.00-1.00); Blood Urea Nitrogen 5 mg/dL (7-18); Calcium 8.4 mg/dL (8.5-10.1); Carbon Dioxide 23 mmol/L (21-32); Chloride 103 mmol/L (98-108); Estimated CRCL calculation 160 ml/min; Estimated Glomerular Filt Rate > 60; NT Pro B Type Natriuretic Pept 271 pg/mL (0-125); Osmolality Calculated 299 mOsm/kg (285-295); Potassium 3.7 mmol/L (3.5-5.1); Sodium 137 mmol/L (136-145); Total Protein 6.5 g/dL (6.4-8.2)
[2024-09-21 13:11] LABS: Glucose 421 mg/dL (70-99)
[2024-09-21] MEDS: SODIUM CHLORIDE 0.9% IV 1,000 ML 999 ML IV CONT (13:37)
[2024-09-21] MEDS: INSULIN HUMAN REGULAR (*BKC) 1,000 UNITS/10 ML VIAL 9 UNITS IV PUSH (13:39)
[2024-09-21] MEDS: PIPERACILLN/TAZ 3.375GM/NS50ML 3.375 GM/50 ML BAG IVPB ×2 (14:34→20:27)
[2024-09-21] MEDS: VANCOMYCIN 1,250 MG/NS 250 ML 1,250 MG/250 ML BAG 166.67 MG IVPB ×2 (15:13→17:12)
[2024-09-21] MEDS: ENOXAPARIN 30 MG/0.3 ML SYRINGE SUB-Q (15:36)
[2024-09-21] MEDS: ENOXAPARIN 120 MG/0.8 ML SYRINGE SUB-Q (15:37)
[2024-09-21 15:43] LABS: Glucose Point of Care 276 mg/dl (65-105)
--- NOTE | 2024-09-21 16:10 | PC.NURSE ---
Patient admitted to room 209, is alert and oriented, call light in reach.
[2024-09-21 16:33] VITALS: BP 118/73; PULSE 97; RESP 18; TEMP 36.1; O2SAT 98
[2024-09-21 16:34] LABS: Glucose Point of Care 218 mg/dl (65-105)
[2024-09-21] MEDS: INSULIN HUMAN LISPRO (*BKC) 1,000 UNITS/10 ML VIAL SUB-Q (17:13)
[2024-09-21] MEDS: INSULIN HUMAN LISPRO (*BKC) 1,000 UNITS/10 ML VIAL 12 UNITS SUB-Q (17:14)
[2024-09-21] MEDS: BUDESONIDE/FORMOTEROL (*SP) 160-4.5 MCG 6 GM INH 2 PUFF INHALATION (18:33)
[2024-09-21] MEDS: IBUPROFEN 400 MG TABLET PO (19:49)
[2024-09-21 21:08] VITALS: PULSE 101
[2024-09-21] MEDS: carvediloL 12.5 MG TABLET 25 MG PO (21:08)
[2024-09-21] MEDS: SACUBITRIL/VALSARTAN 49-51 MG TABLET 1 TABLET PO (21:12)
[2024-09-21] MEDS: MELATONIN 5 MG TABLET PO (21:13)
[2024-09-21] MEDS: INSULIN GLARGINE (*BKC) 1,000 UNITS/10 ML VIAL 55 UNITS SUB-Q (21:13)
[2024-09-21] MEDS: MONTELUKAST SODIUM 10 MG TABLET PO (21:13)
[2024-09-21 21:26] LABS: Glucose Point of Care 210 mg/dl (65-105)
[2024-09-22] VITALS: BP 173/94; PULSE 102; RESP 28; TEMP 36.7; O2SAT 96
[2024-09-22] MEDS: PIPERACILLN/TAZ 3.375GM/NS50ML 3.375 GM/50 ML BAG IVPB ×2 (01:37→08:51)
[2024-09-22] MEDS: VANCOMYCIN 1,500 MG/NS 500 ML 1,500 MG/500 ML BAG 250 MG IVPB (02:10)
[2024-09-22] MEDS: HYDROcodone/acetaminophen (*CRX) 5-325 MG TABLET 1 TAB PO (02:31)
[2024-09-22 05:50] LABS: Basophils Absolute Auto 0.08 K/mm3 (0.00-0.10); Eosinophils Absolute Auto 0.34 K/mm3 (0.02-0.50); Eosinophils Percent Auto 4.1 % (1.0-6.0); Hemoglobin 13.2 g/dL (14.0-18.0); Immature Granulocyte Absolute 0.13 K/mm3 (0.00-0.00); Immature Granulocyte Percent A 1.5 % (0.0-0.0); Lymphocytes Absolute Auto 3.32 K/mm3 (1.10-4.50); Lymphocytes Percent Auto 39.6 % (18.0-42.0); Mean Corpuscular HGB Conc 35.7 g/dL (32-36); Mean Corpuscular Hemoglobin 30.8 pg (27.0-31.0); Mean Corpuscular Volume 86.2 fL (78.0-102.0); Monocytes Absolute Auto 0.58 K/mm3 (0.10-0.90); Monocytes Percent Auto 6.9 % (2.0-11.0); Neutrophils Absolute Auto 3.94 K/mm3 (1.70-7.20); Neutrophils Percent Auto 46.9 % (50.0-70.0); Platelet Count Result 225 K/mm3 (150-420); Red Blood Count 4.29 M/mm3 (4.70-6.10); Red Cell Distribution Width 12.6 % (11.6-14.4); White Blood Count 8.4 K/mm3 (4.8-10.8)
[2024-09-22 06:08] LABS: Alanine Aminotransferase 29 U/L (16-63); Albumin Level 2.2 g/dL (3.4-5.0); Alkaline Phosphatase 91 U/L (46-116); Anion Gap 6 mmol/L (4-12); Aspartate Amino Transferase 16 U/L (15-37); Bilirubin,Total 0.2 mg/dL (0.00-1.00); Blood Urea Nitrogen 5 mg/dL (7-18); CRP 0.7 mg/dL (0.0-0.9); Calcium 8.3 mg/dL (8.5-10.1); Carbon Dioxide 29 mmol/L (21-32); Chloride 104 mmol/L (98-108); Estimated CRCL calculation 263 ml/min; Estimated Glomerular Filt Rate > 60; Glucose 199 mg/dL (70-99); Osmolality Calculated 291 mOsm/kg (285-295); Potassium 3.7 mmol/L (3.5-5.1); Sodium 139 mmol/L (136-145); Total Protein 6.2 g/dL (6.4-8.2)
[2024-09-22] MEDS: BUDESONIDE/FORMOTEROL (*SP) 160-4.5 MCG 6 GM INH 2 PUFF INHALATION (06:45)
[2024-09-22 08:00] VITALS: BP 150/60; PULSE 74; RESP 18; TEMP 36.1; O2SAT 93
[2024-09-22] MEDS: UMECLIDINIUM BROMIDE 62.5 MCG ELLIPTA 1 PUFF INHALATION (08:44)
[2024-09-22] MEDS: ROSUVASTATIN 10 MG TABLET 40 MG PO (08:45)
[2024-09-22] MEDS: ENOXAPARIN 40 MG/0.4 ML SYRINGE SUB-Q (08:45)
[2024-09-22 08:46] VITALS: PULSE 74
[2024-09-22] MEDS: FUROSEMIDE 40 MG TABLET PO (08:46)
[2024-09-22] MEDS: SACUBITRIL/VALSARTAN 49-51 MG TABLET 1 TABLET PO (08:46)
[2024-09-22] MEDS: SPIRONOLACTONE 25 MG TABLET PO (08:46)
[2024-09-22] MEDS: carvediloL 12.5 MG TABLET 25 MG PO (08:46)
[2024-09-22] MEDS: FERROUS SULFATE 325 MG TABLET DR PO (08:47)
[2024-09-22] MEDS: INSULIN HUMAN LISPRO (*BKC) 1,000 UNITS/10 ML VIAL 12 UNITS SUB-Q (08:49)
[2024-09-22 11:36] LABS: Glucose Point of Care 189 mg/dl (65-105)
--- NOTE | 2024-09-22 13:45 | PC.NURSE ---
1145 dc to his personal auto. encouraged the importance of feet care. wearing shoes when up since limited feeling in feet. finishing abt and follow with doctors. vocalizes an understanding.
--- NOTE | 2024-09-22 13:51 | PM.SD2 ---
Same Day Admit/Disch: HPI History of Present Illness Chief complaint: DIABETIC HYPERGLYCEMIA LEFT FOOT INFECTION Narrative: Clovis Steel is a 49 [place] [address] Emergency Room Visit Note Signed Patient: Clovis Steel MR#: [id number] : 1975 Acct:[id number] Age: 49 ADM Date: 09/21/24 Loc: [facility] [place] [id number] Attending Dr: Kelvin Villalta M.D. cc: Jean Paul Mays MD; Betty Crump MD~ HPI - Extremity Injury (Lower) General Chief Complaint: Extremity Injury, Lower Stated Complaint: left foot pain Time Seen by Provider: 09/21/24 12:11 Source: patient Mode of arrival: ambulatory Limitations: no limitations History of Present Illness HPI Narrative: patient came to the ED by private car complaining of left foot and ankle is swollen over the last few days. Patient is telling me that he had a piece of plastic pulled out of his left foot and was discharged on clindamycin, Bactroban and naproxen. Patient noticed that his left ankle and foot little bit swollen, he denies any fever, chills, nausea, vomiting, pain. History of diabetes with peripheral neuropathy. [facility] Past Medical History Medical History Albuminuria Arthritis Asthma Bipolar 1 disorder Carpal tunnel syndrome Cellulitis of foot Congestive heart failure Cornea transplant recipient Hammer toe Histoplasma capsulatum infection Hyperglycemia due to type 2 diabetes mellitus Hypertension Neuropathy Nicotine addiction Obesity, Class III, BMI 40-49.9 (morbid obesity) Obstructive sleep apnea Plantar fasciitis PLMD (periodic limb movement disorder) Type 2 diabetes mellitus with hyperglycemia Surgical History Surgical History H/O hernia repair x2 History of eye surgery cornea transplant Family History Family History Father Heart disease Asthma as a child Hypertension Mother Diabetes mellitus Asthma Colon polyp Depression Bipolar 1 disorder Hypertension Sibling Acute myocardial infarction Asthma Bipolar 1 disorder Diabetes mellitus Hypertension Heart disease brother Other Breast cancer great aunt Heart disease uncle Grandparent Cerebrovascular accident Bipolar 1 disorder Diabetes mellitus Heart disease Hypertension Social History Social History Smoking packs per day: 1 Smoking cigarettes per day: 20.0 Years smoked: 35 Smoking pack-years: 35.00 Smoking status: Light tobacco smoker Tobacco type: cigarettes Second hand tobacco smoke exposure: No Alcohol intake: current Alcohol use details: socially Substance use: current Substance use type: marijuana Do You Feel Safe in your Home?: Yes Lack of Transportation: No Lack of Food: Never True Current Housing: I Have Housing Concerned About Future Housing: No Difficulty Paying Gas/Electric Bills: No Difficulty Paying for Meds: No Currently Unemployed: No Education: High School Diploma/GED Difficulty w/ Childcare or Family Care: No Living arrangements: alone Occupation/Education: retired Gender identity (if verbalized by the patient): Male Sexual Orientation (if Verbalized by the Patient): Straight or Heterosexual Spiritual care concerns: No Same Day Admit/Disch: Med Pre-admit Medications Home Medications Medication Instructions Recorded Confirmed Type carvedilol 25 mg tablet See Rx Instructions .Route 07/10/22 09/21/24 Rx .COMPLEX #180 tabs omeprazole 20 mg capsule,delayed 20 mg PO BID #20 caps 07/10/22 09/21/24 Rx release multivitamin with minerals-folic 1 tablet PO DAILY 06/20/23 09/21/24 History acid 400 mcg-lycopene 370 mcg tablet (One-A-Day Men's 50 Plus) budesonide-formoterol HFA 160 2 puff inhalation Q12H #10.2 grams 08/30/23 09/21/24 Rx mcg-4.5 mcg/actuation aerosol inhaler (Symbicort) montelukast 10 mg tablet 10 mg PO QHS #30 tabs 08/30/23 09/21/24 Rx furosemide 40 mg tablet (Lasix) 40 mg PO DAILY #90 tabs 03/16/24 09/21/24 Rx sacubitril 49 mg-valsartan 51 mg 1 tablet PO BID #180 tabs 03/16/24 09/21/24 Rx tablet (Entresto) spironolactone 25 mg tablet 25 mg PO DAILY #90 tabs 03/16/24 09/21/24 Rx (Aldactone) ferrous sulfate 325 mg (65 mg See Rx Instructions .Route 03/17/24 09/21/24 Rx iron) tablet .COMPLEX #90 tabs Spiriva Respimat 1.25 2 puff inhalation Q24H #4 grams 03/27/24 09/21/24 Rx mcg/actuation solution for inhalation (tiotropium bromide) blood sugar diagnostic (OneTouch #450 ea 05/08/24 09/21/24 Rx Ultra Test strips) insulin aspart U-100 100 unit/mL 26 unit (0.26 mL) subcut TIDWMEAL 05/08/24 09/21/24 Rx (3 mL) subcutaneous pen (Novolog #75 mL FlexPen U-100 Insulin aspart) blood sugar diagnostic (Accu-Chek #200 ea 05/14/24 09/21/24 Rx Guide test strips) blood-glucose meter (Accu-Chek #1 ea 05/14/24 09/21/24 Rx Guide Glucose Meter) glucose 4 gram chewable tablet 16 g PO Q15M PRN hypoglycemia #360 06/20/24 09/21/24 Rx tabs blood-glucose meter,continuous #1 ea 08/20/24 09/21/24 Rx (FreeStyle Sal 3 [place]) blood-glucose sensor (FreeStyle #6 ea 08/20/24 09/21/24 Rx Sal 3 Sensor device) insulin glargine 100 unit/mL (3 64 unit (0.64 mL) subcut BID #120 08/20/24 09/21/24 Rx mL) subcutaneous pen (Lantus mL Solostar U-100 Insulin) rosuvastatin 40 mg tablet 40 mg PO DAILY #90 tabs 08/24/24 09/21/24 Rx mupirocin 2 % topical ointment 1 applic topical TID 7 days #15 09/12/24 09/21/24 Rx grams naproxen 500 mg tablet 500 mg PO BID PRN pain #14 tabs 09/12/24 09/21/24 Rx sulfamethoxazole 800 1 tablet PO Q12H #20 tabs 09/22/24 Rx mg-trimethoprim 160 mg tablet (Bactrim DS) Review of Systems Review of Systems foot wound right All systems reviewed & are unremarkable except as noted in HPI and below Exam Const: General: cooperative and no acute distress DS: Data Data Completed and Pending Labs on day of discharge: Labs from last 24 hours 09/22/24 09/22/24 09/21/24 08:06 05:45 22:21 WBC 8.4 RBC 4.29 L Hgb 13.2 L Hct 37.0 L MCV 86.2 MCH 30.8 MCHC 35.7 RDW 12.6 Plt Count 225 MPV 9.0 Immature Gran % (Auto) 1.5 H Neut % (Auto) 46.9 L Lymph % (Auto) 39.6 Weber % (Auto) 6.9 Eos % (Auto) 4.1 Baso % (Auto) 1.0 Lymph # (Auto) 3.32 Weber # (Auto) 0.58 Eos # (Auto) 0.34 Baso # (Auto) 0.08 Abs Immat Gran (auto) 0.13 H Absolute Neuts (auto) 3.94 Absolute Nucleated RBC 0.00 Nucleated RBC % 0.0 Sodium 139 Potassium 3.7 Chloride 104 Carbon Dioxide 29 Anion Gap 6 BUN 5 L Creatinine 0.74 Estim Creat Clear Calc 263 Estimated GFR > 60 Glucose 199 H POC Capillary Glucose 189 H 210 H Calculated Osmolality 291 Calcium 8.3 L Total Bilirubin 0.2 AST 16 ALT 29 Alkaline Phosphatase 91 C-Reactive Protein 0.7 Total Protein 6.2 L Albumin 2.2 L 09/21/24 09/21/24 17:29 15:40 WBC RBC Hgb Hct MCV MCH MCHC RDW Plt Count MPV Immature Gran % (Auto) Neut % (Auto) Lymph % (Auto) Weber % (Auto) Eos % (Auto) Baso % (Auto) Lymph # (Auto) Weber # (Auto) Eos # (Auto) Baso # (Auto) Abs Immat Gran (auto) Absolute Neuts (auto) Absolute Nucleated RBC Nucleated RBC % Sodium Potassium Chloride Carbon Dioxide Anion Gap BUN Creatinine Estim Creat Clear Calc Estimated GFR Glucose POC Capillary Glucose 218 H 276 H Calculated Osmolality Calcium Total Bilirubin AST ALT Alkaline Phosphatase C-Reactive Protein Total Protein Albumin Preliminary micro results at discharge 09/21/24 14:32 Blood Culture - Preliminary Blood 09/21/24 14:30 Blood Culture - Preliminary Blood DS: Summary Hospital Course Reason for hospitalization: Left foot plantar Hospital Course: This is a 49 years old male that has a past medical hisotry significant diabetes, asthma, bipolar, asthmas , left foot cellulitis, neuropathy and obesity. He presented with a draining wound of the left foot causing pain and worsening welling in the left ankle over the past few days. Patient was on home clindamycin and Bactrim . Labs has shown georgie, hyperglycemia . Xray shows punctured density at the tip of the great toe, venous Doppler are negative for DVT, CT shows Polyarthritis arthritis and the puncture area. While here he has receives IV antibiotic monitor his blood sugars and treated with insulin accordingly. Dressing changes have been completed, and the patient has remained afebrile, with no nausea and vomiting and he has continued to eat and drink without difficulties. Patient will be discharged where he should follow up with his primary care provider and follow up with wound clinic. Patient will need to continue to monitor blood sugars closely. Time spent discussing smoking cessation with patient: 3 to 10 minutes Time Spent with Patient Time attestation: Total time spent providing and/or coordinating discharge services: DS: Admitting Diagnosis Discharge Date 09/22/24 Admitting Diagnosis Diabetes wound, congestive heart failure, acute kindey injury, Obesity DS: Discharge Diagnosis Discharge Diagnosis (1) Hyperglycemia due to diabetes mellitus: Code(s): E11.65 - Type 2 diabetes mellitus with hyperglycemia Status: Acute (2) Diabetic foot ulcer associated with secondary diabetes mellitus: Qualifiers: Diabetic foot ulcer location: other Laterality: unspecified laterality Non-pressure ulcer stage: unspecified non-pressure ulcer stage Qualified Code(s): E08.621 - Diabetes mellitus due to underlying condition with foot ulcer; L97.509 - Non-pressure chronic ulcer of other part of unspecified foot with unspecified severity Code(s): E08.621 - Diabetes mellitus due to underlying condition with foot ulcer; L97.509 - Non-pressure chronic ulcer of other part of unspecified foot with unspecified severity Status: Acute (3) Congestive heart failure: Code(s): I50.9 - Heart failure, unspecified Status: Acute Discharge Plan Discharge Attending physician on discharge: Kelvin Villalta Consulting providers: Lynnette Golden; Cornelius Casas; Regulo Vega V.; Rusty Bustillos Discharging Clinician: Lynnette Golden Anticipated Discharge Date/Time: 09/22/24 10:48 Patient Disposition: Home, Self-Care Activity: may shower and unlimited Diet: diabetic Wound Care Instructions: follow printed instructions, keep dressing dry, remove dressing to shower and change dressing daily Discharge Instructions: Make sure you are wearing shoes when outside Make sure you are not smoking Make sure you are monitoring your blood sugars. Apply dressing to area daily and do not go without SHOES Please Patient Instructions: Antibiotic Form, Sulfamethoxazole/Trimethoprim (By mouth), Diabetic Neuropathy (DC), Fall Prevention (DC), Diabetic Hyperglycemia (ED), Diabetes and Your Skin (DC), Acute Wounds (DC) Stand Alone Forms: General Discharge Information Follow-up/Referrals: Jean Paul Mays MD [Primary Care Provider] - (Call and schedule post hospital appointment) Discharge Medications: New sulfamethoxazole-trimethoprim [Bactrim DS] 800-160 mg tablet 1 tablet PO Q12H Qty: 20 0RF Continued carvedilol 25 mg tablet See Rx Instructions .ROUTE .COMPLEX Qty: 180 2RF Dose Instruction: TAKE 1 TABLET BY MOUTH EVERY 12 HOURS WITH MEAL OR FOOD Rx Instructions: TAKE 1 TABLET BY MOUTH EVERY 12 HOURS WITH MEAL OR FOOD omeprazole 20 mg capsule,delayed release(DR/EC) 20 mg PO BID Qty: 20 0RF mupirocin 2 % ointment 1 applic topical TID 7 Days Qty: 15 0RF naproxen 500 mg tablet 500 mg PO BID PRN (Reason: pain) Qty: 14 0RF Spiriva Respimat 1.25 mcg/actuation mist 2 puff inhalation Q24H Qty: 4 5RF Entresto 49-51 mg tablet 1 tablet PO BID Qty: 180 2RF spironolactone [Aldactone] 25 mg tablet 25 mg PO DAILY Qty: 90 2RF furosemide [Lasix] 40 mg tablet 40 mg PO DAILY Qty: 90 2RF (DME) FreeStyle Sal 3 [place] Misc See Rx Instructions .Route Qty: 1 0RF Rx Instructions: As directed (DME) FreeStyle Sal 3 Sensor Device See Rx Instructions .Route Qty: 6 3RF Rx Instructions: every 14 days insulin glargine [Lantus Solostar U-100 Insulin] 100 unit/mL (3 mL) insulin pen 64 unit subcut BID Qty: 120 0RF Rx Instructions: 64 units twice daily One-A-Day Men's 50 Plus 400-370 mcg tablet 1 tablet PO DAILY montelukast 10 mg tablet 10 mg PO QHS Qty: 30 11RF budesonide-formoterol [Symbicort] 160-4.5 mcg/actuation HFA aerosol inhaler 2 puff inhalation Q12H Qty: 10.2 5RF Rx Instructions: rinse and spit glucose 4 gram tablet,chewable 16 g PO Q15M PRN (Reason: hypoglycemia) Qty: 360 0RF Rx Instructions: until symptoms of low blood sugar are controlled ferrous sulfate 325 mg (65 mg iron) tablet See Rx Instructions .ROUTE .COMPLEX Qty: 90 1RF Dose Instruction: TAKE 1 TABLET BY MOUTH EVERY DAY Rx Instructions: TAKE 1 TABLET BY MOUTH EVERY DAY (DME) OneTouch Ultra Test Strip See Rx Instructions .ROUTE .MEDSUPPLY Qty: 450 12RF Rx Instructions: 4 times day insulin aspart U-100 [Novolog FlexPen U-100 Insulin] 100 unit/mL (3 mL) insulin pen 26 unit subcut TIDWMEAL MDD 110 Qty: 75 1RF Rx Instructions: 26 units before meals plus sliding scale (DME) blood-glucose meter [Accu-Chek Guide Glucose Meter] Misc See Rx Instructions .Route Qty: 1 0RF Rx Instructions: As directed to check BS (DME) Accu-Chek Guide test strips Strip See Rx Instructions .Route Qty: 200 0RF Rx Instructions: check BS 4 times daily rosuvastatin 40 mg tablet 40 mg PO DAILY Qty: 90 2RF Discontinued clindamycin HCl 300 mg capsule 300 mg PO Q6H 10 Days Qty: 40 0RF Date of admission: 09/21/24 15:36 Primary Care Provider: Jean Paul Mays Admitting Provider: Kelvin Villalta Attending physician on admission: Kelvin Villalta Condition: Stable
--- NOTE | 2024-09-24 09:51 | PC.NURSE ---
Discharge call back completed, doing well at home, taking abx as prescribed, swelling is better to foot
== END 2024-09-22 11:45 | disposition home or self-care (01) ==
LOC: CHSED 13:53 → CHS2ND 15:39
PROVIDERS: Nurse Practitioner Acute Care; Admitting Provider Internal Medicine; Emergency Provider Emergency Medicine; PCP Internal Medicine; Visit Provider Internal Medicine
DX: E11.65 Type 2 diabetes mellitus with hyperglycemia (principal); E11.621 Type 2 diabetes mellitus with foot ulcer; L97.509 Non-pressure chronic ulcer of other part of unspecified foot with unspecified severity; I11.0 Hypertensive heart disease with heart failure; I50.9 Heart failure, unspecified; E11.42 Type 2 diabetes mellitus with diabetic polyneuropathy; E11.69 Type 2 diabetes mellitus with other specified complication; L08.9 Local infection of the skin and subcutaneous tissue, unspecified; S91.312D Laceration without foreign body, left foot, subsequent encounter; W26.8XXD Contact with other sharp object(s), not elsewhere classified, subsequent encounter; Z91.148 Patient's other noncompliance with medication regimen for other reason; N17.9 Acute kidney failure, unspecified; R79.1 Abnormal coagulation profile; R86.9 Unspecified abnormal finding in specimens from male genital organs; F31.9 Bipolar disorder, unspecified; G56.00 Carpal tunnel syndrome, unspecified upper limb; F17.210 Nicotine dependence, cigarettes, uncomplicated; J45.909 Unspecified asthma, uncomplicated; G47.33 Obstructive sleep apnea (adult) (pediatric); M72.2 Plantar fascial fibromatosis; M19.90 Unspecified osteoarthritis, unspecified site; G47.61 Periodic limb movement disorder; E66.01 Morbid (severe) obesity due to excess calories; Z68.41 Body mass index [BMI] 40.0-44.9, adult; Z79.82 Long term (current) use of aspirin; Z79.4 Long term (current) use of insulin; Z79.84 Long term (current) use of oral hypoglycemic drugs; Z79.51 Long term (current) use of inhaled steroids; Z79.899 Other long term (current) drug therapy; Z94.7 Corneal transplant status
CPT/HCPCS: 36415; 71045; 71275; 73630; 73701; 80053; 82948; 83880; 85025; 85380; 86140; 87040; 93005; 93971; 96361; 96365; 96366; 96367; 96372; 96375; 99285; A9270; G0378; J1650; J1815; J2543; J3370; J7030; Q9967

== ENCOUNTER 2024-12-06 15:18 | Emergency (ER) | payer MEDICARE, SELFPAY ==
--- NOTE | ~2024-12-06 | XR_ITS ---
EXAMINATION: XR chest 1V portable Exam Date/Time: 12/06/2024 15:20 [employer] ATTENDANT HISTORY: cough/sob x5 days Comparison: 09/21/2024; CTPA 09/22/2024. RESULT: Lines, tubes, and devices: None. Lungs and pleura: Patchy subsegmental airspace disease bilaterally. Somewhat nodular 1.9 cm opacity in the right upper lung. Cardiomediastinal silhouette: Stable. Other: No acute osseous or upper abdominal finding. IMPRESSION: Patchy bilateral peripheral airspace disease likely representing infection. Edema considered less lik tyler. 1.9 cm nodular opacity in the right upper lung may represent a focus of infection or pulmonary n odule. Consider low-dose noncontrast CT of the chest. Reviewed, dictated and finalized at location K. HOUSE ATTENDANT IMPRESSION: Patchy bilateral peripheral airspace disease likely representing infection. Gonzalo ma considered less likely. 1.9 cm nodular opacity in the right upper lung may r epresent a focus of infection or pulmonary nodule. Consider low-dose noncontras t CT of the chest.
[2024-12-06 15:18] VITALS: O2SAT 99
[2024-12-06 15:21] VITALS: BP 133/90; PULSE 120; RESP 24; TEMP 36.9; O2SAT 96
--- NOTE | 2024-12-06 15:31 | ED_ITS ---
HPI - URI/Sore Throat General Chief Complaint: Upper Respiratory Infection Stated Complaint: cold symptoms. Time Seen by Provider: 12/06/24 15:29 Source: patient Mode of arrival: ambulatory Limitations: no limitations History of Present Illness HPI Narrative: 49 YEARS OLD WHITE MALE WITH HISTORY OF ASTHMA / COPD CAME TO THE EMERGENCY ROOM WITH INTERMITTENT COUGHING, RUNNY NOSE POSTNASAL DISCHARGE, SHORTNESS OF B REATH ON EXERTION FOR THE LAST 7 DAYS. HE DENIES ANY FEVER OR CHILLS OR NAUSEA OR VOMITING OR CHEST PAIN. Related Data Home Medications ?Medication ?Instructions ?Recorded ?Confirmed ?Last Taken ?Type multivitamin with minerals-folic 1 tablet PO DAILY 06/20/23 09/21/24 Unknown History acid 400 mcg-lycopene 370 mcg tablet (One-A-Day Men's 50 Plus) Allergies Allergy/AdvReac Type Severity Reaction Status Date / Time amlodipine Allergy Unknown Verified 12/06/24 15:20 tramadol Allergy Unknown Verified 12/06/24 15:20 Review of Systems Review of Systems: All systems reviewed & are unremarkable except as noted in HPI and below PMFSH Past Medical History Medical History Albuminuria Arthritis Asthma Bipolar 1 disorder Carpal tunnel syndrome Cellulitis of foot Congestive heart failure Cornea transplant recipient Hammer toe Histoplasma capsulatum infection Hyperglycemia due to type 2 diabetes mellitus Hypertension Neuropathy Nicotine addiction Obesity, Class III, BMI 40-49.9 (morbid obesity) Obstructive sleep apnea Plantar fasciitis PLMD (periodic limb movement disorder) Type 2 diabetes mellitus with hyperglycemia Surgical History Surgical History H/O hernia repair x2 History of eye surgery cornea transplant Family History Family History Father Heart disease Asthma as a child Hypertension Mother Diabetes mellitus Asthma Colon polyp Depression Bipolar 1 disorder Hypertension Sibling Acute myocardial infarction Asthma Bipolar 1 disorder Diabetes mellitus Hypertension Heart disease brother Other Breast cancer great aunt Heart disease uncle Grandparent Cerebrovascular accident Bipolar 1 disorder Diabetes mellitus Heart disease Hypertension Social History Social History Smoking packs per day: 1 Smoking cigarettes per day: 20.0 Years smoked: 35 Smoking pack-years: 35.00 Smoking status: Light tobacco smoker Tobacco type: cigarettes Second hand tobacco smoke exposure: No Alcohol intake: current Alcohol use details: socially Substance use: current Substance use type: marijuana Do You Feel Safe in your Home?: Yes Lack of Transportation: No Lack of Food: Never True Current Housing: I Have Housing Concerned About Future Housing: No Difficulty Paying Gas/Electric Bills: No Difficulty Paying for Meds: No Currently Unemployed: No Education: High School Diploma/GED Difficulty w/ Childcare or Family Care: No Living arrangements: alone Occupation/Education: retired Gender identity (if verbalized by the patient): Male Sexual Orientation (if Verbalized by the Patient): Straight or Heterosexual Spiritual care concerns: No Exam Narrative: GENERAL APPEARANCE: WELL-DEVELOPED, WELL-NOURISHED SKIN: NORMAL COLOR HEAD: NORMOCEPHALIC, NONTRAUMATIC EYES: CLEAR CONJUNCTIVA ENT: OROPHARYNX NORMAL, EARS NORMAL, NOSE NORMAL NECK: SUPPLE, NONTENDER CHEST AND RESPIRATORY: AIRWAY PATENT, NO RESPIRATORY DISTRESS, NO ACCESSORY MUSCLE USE , FEW SCATTERED RHONCHI BILATERALLY HEART: REGULAR RATE/RHYTHM VASCULAR: NORMAL PERIPHERAL PULSES, NORMAL CAPILLARY REFILL. MUSCULOSKELETAL: NORMAL RANGE OF MOTION, NONTENDER BACK NEUROLOGIC: ALERT AND ORIENTED ?3, SENIOR PROGRAMMER IS NORMAL TESTED, NO GROSS MOTOR DEFICIT Course Vital Signs Vital signs: Vital Signs Temperature 36.9 C 12/06/24 15:21 Pulse Rate 120 H 12/06/24 15:21 Respiratory Rate 24 H 12/06/24 15:21 Blood Pressure 133/90 12/06/24 15:21 Pulse Oximetry 96 12/06/24 15:21 Oxygen Delivery Room Air 12/06/24 15:21 Temperature 36.9 C 12/06/24 15:21 Pulse Rate 120 H 12/06/24 15:21 Respiratory Rate 24 H 12/06/24 15:21 Blood Pressure 133/90 12/06/24 15:21 Pulse Oximetry 96 12/06/24 15:21 Oxygen Delivery Room Air 12/06/24 15:21 MDM - URI/Sore Throat Lab Data Labs: Lab Results 12/06/24 Range/Units 15:20 Influenza A (RT-PCR) Negative (Negative) Influenza B (RT-PCR) Negative (Negative) RSV (RT-PCR) Positive A (Negative) SARS-CoV-2 RNA (RT-PCR) Negative (Negative) Discharge Plan Discharge Clinical Impression: RSV infection Patient Disposition: Home, Self-Care Condition: Improved Instructions: RSV (Respiratory Syncytial Virus) Infection (ED) Additional Instructions: RETURN IF SYMPTOMS ARE WORSENING , CALL YOUR FAMILY PHYSICIAN FOR APPOINTMENT, TAKE TYLENOL NEEDED FOR ACHES AND PAIN, CONTINUE HOME MEDICATIONS. Patient Language: Guyanese Prescriptions: New prednisone 20 mg tablet 40 mg PO DAILY 5 Days Qty: 10 0RF No Action carvedilol 25 mg tablet See Rx Instructions .ROUTE .COMPLEX Qty: 180 2RF Dose Instruction: TAKE 1 TABLET BY MOUTH EVERY 12 HOURS WITH MEAL OR FOOD Rx Instructions: TAKE 1 TABLET BY MOUTH EVERY 12 HOURS WITH MEAL OR FOOD omeprazole 20 mg capsule,delayed release(DR/EC) 20 mg PO BID Qty: 20 0RF mupirocin 2 % ointment 1 applic topical TID 7 Days Qty: 15 0RF naproxen 500 mg tablet 500 mg PO BID PRN (Reason: pain) Qty: 14 0RF sulfamethoxazole-trimethoprim [Bactrim DS] 800-160 mg tablet 1 tablet PO Q12H Qty: 20 0RF Spiriva Respimat 1.25 mcg/actuation mist 2 puff inhalation Q24H Qty: 4 5RF Entresto 49-51 mg tablet 1 tablet PO BID Qty: 180 2RF spironolactone [Aldactone] 25 mg tablet 25 mg PO DAILY Qty: 90 2RF furosemide [Lasix] 40 mg tablet 40 mg PO DAILY Qty: 90 2RF (DME) FreeStyle Sal 3 [place]flower Misc See Rx Instructions .Route Qty: 1 0RF Rx Instructions: As directed (DME) FreeStyle Sal 3 Sensor Device See Rx Instructions .Route Qty: 6 3RF Rx Instructions: every 14 days One-A-Day Men's 50 Plus 400-370 mcg tablet 1 tablet PO DAILY montelukast 10 mg tablet 10 mg PO QHS Qty: 30 11RF budesonide-formoterol [Symbicort] 160-4.5 mcg/actuation HFA aerosol inhaler 2 puff inhalation Q12H Qty: 10.2 5RF Rx Instructions: rinse and spit glucose 4 gram tablet,chewable 16 g PO Q15M PRN (Reason: hypoglycemia) Qty: 360 0RF Rx Instructions: until symptoms of low blood sugar are controlled ferrous sulfate 325 mg (65 mg iron) tablet See Rx Instructions .ROUTE .COMPLEX Qty: 90 1RF Dose Instruction: TAKE 1 TABLET BY MOUTH EVERY DAY Rx Instructions: TAKE 1 TABLET BY MOUTH EVERY DAY (DME) OneTouch Ultra Test Strip See Rx Instructions .ROUTE .MEDSUPPLY Qty: 450 12RF Rx Instructions: 4 times day (DME) blood-glucose meter [Accu-Chek Guide Glucose Meter] Misc See Rx Instructions .Route Qty: 1 0RF Rx Instructions: As directed to check BS (DME) Accu-Chek Guide test strips Strip See Rx Instructions .Route Qty: 200 0RF Rx Instructions: check BS 4 times daily rosuvastatin 40 mg tablet 40 mg PO DAILY Qty: 90 2RF insulin glargine [Lantus Solostar U-100 Insulin] 100 unit/mL (3 mL) insulin pen 64 unit subcut BID Qty: 120 3RF Rx Instructions: 64 units twice daily insulin aspart U-100 [Novolog FlexPen U-100 Insulin] 100 unit/mL (3 mL) insulin pen 26 unit subcut TIDWMEAL MDD 110 Qty: 75 1RF Rx Instructions: 26 units before meals plus sliding scale Follow-up/Referrals: Jean Paul Mays MD [Primary Care Provider] -
[2024-12-06] MEDS: predniSONE 20 MG TABLET 60 MG PO (15:33)
[2024-12-06] MEDS: IPRATROPIUM 0.5 MG/ALBUTEROL SULFATE 2.5 MG AMPUL.NEB 3 ML INHALATION (15:34)
--- NOTE | 2024-12-06 15:38 | PC.NURSE ---
Co0vid culture sent to lab
[2024-12-06 16:15] LABS: SARS-CoV-2 RNA PCR Negative (Negative)
[2024-12-06 16:35] LABS: Influenza A QL RT-PCR Negative (Negative); Influenza B QL RT-PCR Negative (Negative); RSV RNA, RT-PCR Positive (Negative)
[2024-12-06 17:01] VITALS: BP 146/92; PULSE 92; RESP 20; TEMP 36.8; O2SAT 98
== END 2024-12-06 17:01 | disposition home or self-care (01) ==
PROVIDERS: Emergency Provider Emergency Medicine; PCP Internal Medicine
DX: J06.9 Acute upper respiratory infection, unspecified (principal); B97.4 Respiratory syncytial virus as the cause of diseases classified elsewhere; I11.0 Hypertensive heart disease with heart failure; I50.9 Heart failure, unspecified; E11.9 Type 2 diabetes mellitus without complications; Z20.822 Contact with and (suspected) exposure to COVID-19
CPT/HCPCS: 71045; 87637; 99283; J7512